=== PATIENT | female | born 1985 | race Caucasian/White ===

== ENCOUNTER 2016-07-25 18:35 | Inpatient (IN) | payer OTHER ==
--- NOTE | ~2016-07-25 | CO ---
Unit #: [id number] #: [id number] Patient: OCTAVIA ESPINAL [id number] [place] [address] [id number] I MR#: [id number] NAME: OCTAVIA ESPINAL. ROOM: P131 Age: 31 Sex: F Admission Date: 07/25/2016 : 1985 Attending Physician: Liliam Bennett M.D. Primary Care Physician: Primary Care Physician No Consultation Date: 07/27/2016 CONSULTATION REPORT ORDERING PROVIDER Dr. Bennett. REASON FOR CONSULTATION Per patient, herpes in throat and eye. SUBJECTIVE The patient reports that her right eye has been sore and she has an ingrown eyelash that is causing irritation. She also reports that she has pain in her mouth and throat and feels like her throat is closing in. OBJECTIVE The patient has some white patches on her tongue, that could be easily scraped off. Her right eye is not swollen. There is no redness. I could not identify any issues with her eyelashes. ASSESSMENT 1. Right eye irritation. 2. Thrush. PLAN Plan is to start the patient on Nystatin swish and swallow and some eye lubricant. Dictated by... Kristan Acharya A.P.R.N. for Prisca Yanez/micah TD: 07/28/2016 18:33 JOB #: [id number] CONSULTATION REPORT X KRISTAN ACHARYA APRN CONSULTATION REPORT
--- NOTE | ~2016-07-25 | HP ---
Unit #: [id number] #: [id number] Patient: EDUARDA ESPINAL [id number] [place] [address] [id number] I MR#: [id number] NAME: EDUARDA ESPINAL. ROOM: P131 Age: 30 Sex: F Admission Date: 07/25/2016 : 1985 Attending Physician: Liliam Bennett M.D. Admitting Physician: Liliam Bennett M.D. Primary Care Physician: Primary Care Physician No HISTORY AND PHYSICAL HISTORY OF PRESENT ILLNESS Eduarda is a 30-year-old female admitted on 07/25/[address] [place] [address] for suicidal ideation and confusion. She is extremely somatic and it is difficult to get surgical history from her due to this. PAST MEDICAL HISTORY 1. Possible herpes. 2. Possible endometriosis. 3. Hypertension. 4. GERD. PAST SURGICAL HISTORY Bilateral tubal ligation. ALLERGIES No known drug allergies. SOCIAL HISTORY Smokes 1 pack of cigarettes daily. No alcohol or illegal drug use. She is currently single and homeless. FAMILY HISTORY Noncontributory. REVIEW OF SYSTEMS CONSTITUTIONAL: No fever or chills. HEENT: Denies any sore throat, ear pain or runny nose. CARDIOVASCULAR: Denies chest pain, irregular heart rhythm or palpitations. CHEST: Denies shortness of breath or cough. No hemoptysis. GASTROINTESTINAL: Denies nausea, vomiting, diarrhea or chronic constipation. ENDOCRINE: Denies history of increased thirst or urination. No recent significant weight loss or gain. GENITOURINARY: Denies dysuria, frequency, or hematuria. SKIN: Denies any rashes. HEMATOLOGIC: Denies history of increased bleeding or bruising. MUSCULOSKELETAL: Denies any hot, swollen joints. No generalized muscle pain. NEUROLOGIC: Denies problems with vision or speech. No frequent, severe headaches. No numbness, tingling or weakness in any extremities. Denies loss of bladder or bowel control. CURRENT MEDICATIONS Unit #: [id number] #: [id number] Patient: EDUARDA ESPINAL 1. Norvasc. 2. Aspirin. 3. Coreg. 4. Benadryl. 5. Depakote. 6. Lexapro. 7. Neurontin. 8. Protonix. 9. Klor-Con. 10. Seroquel. PHYSICAL EXAMINATION GENERAL: Alert, oriented, in no acute distress. VITAL SIGNS: Blood pressure 143/76, heart rate 82, respirations 18, temperature 97.8. HEIGHT: 5 feet 2. WEIGHT: 116 pounds. SKIN: Warm and dry without rash or lesion. HEENT: Normocephalic. TMs not viewed. Oral and nasal passages clear. Conjunctivae clear. PERRLA. EOMs intact. NECK: Supple without lymphadenopathy or thyromegaly. HEART: Regular rate and rhythm without murmur. LUNGS: Clear. ABDOMEN: Soft, nontender, without masses or hepatosplenomegaly. : Not done. EXTREMITIES: No evidence of cyanosis, clubbing or edema. Moves all without focal deficit. NEUROLOGICAL: Grossly within normal limits. Cranial Nerves: II: Visual perez are intact. III, IV AND : Extraocular movements are intact. Pupils are equal, round and reactive to light. V: Facial sensation is grossly normal. VII: Facial movements and expression are normal. VIII: Auditory acuity grossly intact. IX, X: Uvula is midline. Phonation is normal. XI: Patient shrugs shoulders and turns head normally. XII: Tongue protrudes in the midline. Sensory and Motor Function: Sensory and motor sensation is grossly normal. Motor: moves all extremities well. Coordination: Gait is normal. Deep Tendon Reflexes: Intact. IMPRESSION 1. Psychiatric admission. 2. Possible genital herpes. 3. Endometriosis. 4. Hypertension. 5. Gastroesophageal reflux disease. RECOMMENDATIONS PSYCHIATRIC: Per psychiatrist. MEDICAL: No contraindications to participate in facility's activities. MEDICAL PROGNOSIS Good. MEDICAL CONDITION Stable. Unit #: [id number] #: [id number] Patient: EDUARDA ESPINAL Dictated by... Gus Brooks/sher TD: 07/26/2016 16:51 JOB #: [id number] HISTORY AND PHYSICAL X JUDE CROCKETT APRN X HISTORY AND PHYSICAL
--- NOTE | ~2016-07-25 | PN ---
Unit #: [id number] #: [id number] Patient: OCTAVIA ESPINAL [id number] [facility] [address] [place] [address] [id number] I MR#: [id number] NAME: OCTAVIA ESPINAL. ROOM: P131 Age: 31 Sex: F Admission Date: 07/25/2016 : 1985 Attending Physician: Liliam Bennett M.D. Admitting Physician: Liliam Bennett M.D. Primary Care Physician: Primary Care Physician Jovanna POWELL NOTES DATE 07/27/2016 DISCUSSION Ms. Lerner is a 31-year-old white female who was seen today and chart was reviewed and case was discussed with the staff. She has been anxious, withdrawn and seclusive to herself and has been showing some disorganized thoughts and behavior with agitation and irritability and hostility and at times violent outburst. Meanwhile, she has been taking medications and tolerating them fairly well with no reported side effects. MENTAL STATUS EXAMINATION Young white female who was casually dressed with fair personal hygiene, appears to be in no acute distress or discomfort. She was awake and alert with impaired attention and concentration. Her mood was anxious with congruent affect. Her speech was slow and restricted in content. Her thought process was disorganized with some looseness associations, thought blocking and paranoid ideations. Her insight and judgement remains significantly impaired. TREATMENT PLAN 1. We will continue her on her current medications and treatment protocol. We will monitor her response to the medications and make further adjustments as needed. 2. We will continue to follow up. Dictated by... Prisca Law/arianne TD: 07/29/2016 03:37 JOB #: [id number] Unit #: [id number] #: [id number] Patient: OCTAVIA ESPINAL JOANNA PROGRESS NOTES X iLliam Bennett MD PROGRESS NOTE
--- NOTE | ~2016-07-25 | PN ---
Unit #: [id number] #: [id number] Patient: OCTAVIA RUIZ [id number] [facility] [address] [place] [address] [id number] I MR#: [id number] NAME: OCTAVIA RUIZ. ROOM: P131 Age: 31 Sex: F Admission Date: 07/25/2016 : 1985 Attending Physician: Liliam Bennett M.D. Admitting Physician: Liliam Bennett M.D. Primary Care Physician: Primary Care Physician Jovanna MARSHALL PROGRESS NOTES DATE July 30, 2016 DISCUSSION Ms. Riuz is a 31-year-old white female, who was seen today and chart was reviewed and the case was discussed with the staff. The patient has been anxious, withdrawn, and rather seclusive to herself. Meanwhile, she has been cooperative with the treatment recommendations and she has been taking the medications and tolerating them fairly well with no reported side effects. MENTAL STATUS EXAMINATION Young white female, who was casually dressed with fair personal hygiene and appears to be in no acute distress or discomfort. She was awake and alert on interaction with intact orientation. Her mood was anxious and depressed with a congruent affect. The patient denies any suicidal or homicidal ideations. Her insight and judgment remain slightly impaired. TREATMENT PLAN 1. We will continue her on her current medications and treatment protocol, and will monitor her response to the medications, and make further adjustments as needed. 2. We will continue to followup. Dictated by... Prisca Law/severino TD: 07/31/2016 09:39 JOB #: [id number] Unit #: [id number] #: [id number] Patient: OCTAVIA RUIZ [facility] PROGRESS NOTES X Liliam Bennett MD PROGRESS NOTE
--- NOTE | ~2016-07-25 | PN ---
Unit #: [id number] #: [id number] Patient: OCTAVIA ESPINAL [id number] [facility] [address] [place] [address] [id number] I MR#: [id number] NAME: OCTAVIA ESPINAL. ROOM: P131 Age: 31 Sex: F Admission Date: 07/25/2016 : 1985 Attending Physician: Liliam Bennett M.D. Admitting Physician: Liliam Bennett M.D. Primary Care Physician: Primary Care Physician Jovanna MARSHALL PROGRESS NOTES DATE OF SERVICE: 07/28/2016 SUBJECTIVE Ms. Ralph is a 31-year-old white female basically with mood disorder and psychosis, who was seen today and chart was reviewed and the case was discussed with the staff, who reports the patient remained agitated She has been taking the medications and tolerating them fairly well with no reported side effects. MENTAL STATUS EXAMINATION Young white female, who was casually dressed with fair personal hygiene, appears to be in no acute distress or discomfort. She was awake and alert on interaction with intact orientation. Her mood was anxious with a congruent . She denies any suicidal or homicidal ideations. Her insight and judgment remain slightly impaired. TREATMENT PLAN 1. We will continue her on her current medications and treatment protocol. We will monitor her response to medications and make further adjustments as needed. 2. We will continue to follow up. Dictated by... Prisca Law/micah TD: 07/29/2016 04:53 JOB #: [id number] [facility] PROGRESS NOTES X Liliam Bennett MD PROGRESS NOTE
--- NOTE | ~2016-07-25 | DS ---
Unit #: [id number] #: [id number] Patient: OCTAVIA ESPINAL [id number] [place] [address] [id number] I MR#: [id number] NAME: OCTAVIA ESPINAL ROOM: P131 Age: 31 Sex: F Admission Date: 07/25/2016 : 1985 Discharge Date: 07/31/2016 Attending Physician: Liliam Bennett M.D. Primary Care Physician: Primary Care Physician No DISCHARGE SUMMARY IDENTIFYING DATA Ms. Espinal is a 30-year-old single white female, who is a resident of [place], [place], and is known to us from previous encounter, [facility] and was oriented to the hospital environment. Routine p.r.n. medications were initiated and upon initial presentation to the unit, she was seen to be agitated, irritable, aggressive, and acutely psychotic, and noncompliant with medications and has been decompensating and as such, was started back on her medications including her Depakote, Lexapro, and Seroquel and was closely monitored. She was taken medications regularly and was tolerating them fairly well and was able to show a decent and therapeutic response with improvement in depression and psychosis and was willing to continue treatment on an outpatient basis and as such, it was decided that she will be discharged home and will continue treatment on an outpatient basis. DISCHARGE MEDICATIONS Depakote 500 mg b.i.d. for mood disorder, Lexapro 10 mg a day for depression, and Seroquel 300 mg at bedtime for psychosis. DISCHARGE CONDITION Stable. PROGNOSIS Fair. Dictated by... Prisca Law/imcah TD: 07/31/2016 06:56 JOB #: [id number] DISCHARGE SUMMARY X Liliam Bennett MD X DISCHARGE SUMMARY
--- NOTE | ~2016-07-25 | PN ---
Unit #: [id number] #: [id number] Patient: OCTAVIA ESPINAL [id number] [facility] [address] [place] [address] [id number] I MR#: [id number] NAME: OCTAVIA ESPINAL. ROOM: P131 Age: 31 Sex: F Admission Date: 07/25/2016 : 1985 Attending Physician: Liliam Bennett M.D. Admitting Physician: Liliam Bennett M.D. Primary Care Physician: Primary Care Physician Jovanna MARSHALL PROGRESS NOTES DATE OF SERVICE 07/29/2016 DISCUSSION Ms. Espinal is a 31-year-old white female who was seen today. Chart was reviewed and case was discussed with the staff. She has been anxious, withdrawn, and rather seclusive to herself. Meanwhile, she has been compliant with the treatment recommendations and has been taking the medications and tolerating them fairly well with no reported side effects. MENTAL STATUS EXAMINATION Young white female who is casually dressed with fair personal hygiene, appears to be in no acute distress or discomfort. She was awake and alert on interaction with intact orientation. Her mood is anxious with a congruent affect. Her speech is slow and goal-directed. She denies any suicidal or homicidal ideations. Her insight and judgment remain slightly impaired. TREATMENT PLAN 1. We will continue her on her current medications and treatment protocol. We will monitor her response to the medications and make further adjustments as needed. 2. We will continue to follow up. Dictated by... Liliam Bennett M.D. IAA/leobardo TD: 07/30/2016 11:45 JOB #: [id number] [facility] PROGRESS NOTES X Liliam Bennett MD PROGRESS NOTE
--- NOTE | ~2016-07-25 | PA ---
Unit #: [id number] #: [id number] Patient: OCTAVIA RUIZ [id number] [place] [address] [id number] I MR#: [id number] NAME: OCTAVIA RUIZ. ROOM: P131 Age: 31 Sex: F Admission Date: 07/25/2016 : 1985 Date of Assessment: Attending Physician: Liliam Bennett M.D. Admitting Physician: Liliam Bennett M.D. PSYCHIATRIC ASSESSMENT DATE OF SERVICE 07/26/2016. IDENTIFYING DATA Ms. Ruiz is a 30-year-old single white female, who is a resident of [place], [place], and is known to us from previous encounter and was transferred to us. CHIEF COMPLAINT "My psyche is not good. I keep wanting to hurt myself. I need to clear my mind." HISTORY OF PRESENT ILLNESS Ms. Lafleru is a 30-year-old white female with history of mood disorder and psychosis, who was brought to the hospital. Upon presentation, she was seen to be disorganized and she stated that "I keep wanting to hurt myself. I need to clear my mind. My eye is infected. I'm confused when I'm off my medication. I will take my medication. I will go to treatment and I will do whatever to get better, so I don't feel hopeless anymore and judicious thought of my kids have me going. I'm suicidal. My mood is out of control. I have headaches." The patient was seen to be disorganized with looseness of associations, flight of ideas, and was rambling and was agitated and irritable and difficult to carry on meaningful conversation. She was reporting active suicidal ideation and as such, was seen to be a safety concern and recommendation for inpatient level of care was made. SUBSTANCE ABUSE HISTORY The patient reports history of alcohol and benzodiazepine abuse, though she reports that she has not done anything in the last week or two. PAST PSYCHIATRIC HISTORY The patient has had a history of multiple inpatient psychiatric hospitalizations including being at [facility], and review of the medical records indicate that currently she is not seeing a psychiatrist, and review of the medical records indicate that she has been diagnosed and treated for bipolar disorder and is supposed to be on a combination of psychotropic medications including Depakote, Lexapro, and Neurontin, but has been noncompliant with medications. PAST MEDICAL HISTORY Hypertension and endometriosis. ALLERGIES Unit #: [id number] #: [id number] Patient: OCTAVIA RUIZ No known medication allergies. PERSONAL AND SOCIAL HISTORY A 30-year-old white female, who reports that she is single, unemployed, and essentially homeless and has poor social support system. MENTAL STATUS EXAMINATION Young white female, who was casually dressed with fair personal hygiene, appears to be in no acute distress or discomfort. She was awake and alert on interaction with intact orientation. Her mood was anxious with a congruent affect. Her speech was slow and goal directed. Her thought processes were disorganized with some looseness of associations and flight of ideas and paranoid ideations and delusional behavior. Her insight and judgment remain significantly impaired. DIAGNOSTIC IMPRESSION Psychiatric: Schizoaffective disorder, bipolar type, most recent episode depressed, recurrent, moderate, with psychosis. Medical: Hypertension and endometriosis. Stressors: Moderate psychosocial stressors. TREATMENT PLAN 1. The patient has presented with a history of mood disorder and has been decompensating with acute psychosis and depression and suicidal thoughts and will need inpatient hospitalization for safety and stabilization. We will start her back on her home medications and we will adjust the medications and monitor response. 2. Supportive therapy was provided to the patient. ESTIMATED LENGTH OF STAY 5 to 7 days. ABILITY TO HELP SELF Limited. WILLINGNESS TO HELP SELF The patient appears to be willing to help self. STRENGTHS 1. Communicative. 2. Cooperative. PROBLEMS 1. Chronic dysphoric symptoms. 2. Poor social support system. DISCHARGE CRITERIA This will be contingent upon the patient's ability to show resolution of depression and anxiety and psychosis and ability to stay safe to herself, particularly after discharge from the hospital. Dictated by... Prisca Law/micah TD: 07/26/2016 13:26 Unit #: [id number] #: [id number] Patient: OCTAVIA RUIZ JOB #: [id number] PSYCHIATRIC ASSESSMENT X Liliam Bennett MD X PSYCHIATRIC ASSESSMENT
[~2016-07-25 18:35] MED LIST: DEPAKOTE PO; FLEXERIL10 MG PO; NEURONTIN PO; ORUDIS75 M1 PO; SEROQUEL PO
== END 2016-07-31 10:20 | DRG 885 ==
LOC: P1S 18:35
DX: F25.0 Schizoaffective disorder, bipolar type (principal); B37.0 Candidal stomatitis; I10 Essential (primary) hypertension; F17.210 Nicotine dependence, cigarettes, uncomplicated; H57.9 Unspecified disorder of eye and adnexa

== ENCOUNTER 2016-08-12 21:01 | Inpatient (IN) | payer OTHER ==
--- NOTE | ~2016-08-12 | HP ---
Unit #: [id number] #: [id number] Patient: EDUARDA ESPINAL [id number] [place] [address] [id number] I MR#: [id number] NAME: EDUARDA ESPINAL. ROOM: P113 Age: 31 Sex: F Admission Date: 08/12/2016 : 1985 Attending Physician: Liliam Bennett M.D. Admitting Physician: Liliam Bennett M.D. Primary Care Physician: Generic Doctor Not In System HISTORY AND PHYSICAL Eduarda is a 31 year old admitted to [address] [place] [address] with depression and increased anxiety. She has had other admissions to this facility. The patient was seen and H and P dated 07/26/16 was reviewed. This is current. No changes. Please see H and P dated 07/26/16. Dictated by... Jennifer Rendon P.A.-C. for Prisca Yanez/hser TD: 08/13/2016 19:38 JOB #: [id number] HISTORY AND PHYSICAL X Jennifer Rendon HISTORY AND PHYSICAL
--- NOTE | ~2016-08-12 | PN ---
Unit #: [id number] #: [id number] Patient: OCTAVIA ESPINAL [id number] [facility] [address] [place] [address] [id number] I MR#: [id number] NAME: OCTAVIA ESPINAL. ROOM: P113 Age: 31 Sex: F Admission Date: 08/12/2016 : 1985 Attending Physician: Liliam Bennett M.D. Admitting Physician: Liliam Bennett M.D. Primary Care Physician: Generic Doctor Not In System [facility] PROGRESS NOTES DATE 08/16/2016 DISCUSSION Ms. Espinal is a 31-year-old white female who was seen today and chart was reviewed and case was discussed with the staff. She has been anxious, withdrawn, depressed and rather seclusive to herself. Meanwhile, she has been cooperative with treatment recommendations as she has been taking the medications and tolerating them fairly well with no reported side effects. MENTAL STATUS EXAMINATION Young white female who was casually dressed with fair personal hygiene, appears to be in no acute distress or discomfort. She was awake and alert on interaction with intact orientation. Her mood was anxious with congruent affect. She denies any suicidal or homicidal ideations. Her insight and judgement remains slightly impaired. TREATMENT PLAN 1. We will continue her on her current medications and treatment protocol. We will monitor her response to the medication and make further adjustments as needed. 2. We will continue to follow up. Dictated by... Prisca Law/arianne TD: 08/18/2016 01:25 JOB #: [id number] Unit #: [id number] #: [id number] Patient: OCTAVIA ESPINAL [facility] PROGRESS NOTES X Liliam Bennett MD X PROGRESS NOTE
--- NOTE | ~2016-08-12 | DS ---
Unit #: [id number] #: [id number] [facility]: [facility] [id number] [facility] [address] [place] [address] [id number] I MR#: [id number] NAME: OCTAVIA RUIZ. ROOM: P113 Age: 31 Sex: F Admission Date: 08/12/2016 : 1985 Discharge Date: 08/18/2016 Attending Physician: Liliam Bennett M.D. Primary Care Physician: Generic Doctor Not In System DISCHARGE SUMMARY IDENTIFYING DATA Ms. Ruiz is a 31-year-old single white female, who is a resident of [place], [place], and was just recently discharged from our care and was brought back to the hospital on a self-referred basis. DISCHARGE DIAGNOSES Psychiatric: Schizoaffective disorder, bipolar type, most recent episode depressed, recurrent, moderate, with psychosis. Medical: Hypertension, endometriosis, gastroesophageal reflux disease. Stressors: Moderate psychosocial stressors. HISTORY OF PRESENT ILLNESS Please see initial psychiatric evaluation for details. PAST PSYCHIATRIC HISTORY Please see initial psychiatric evaluation for details. PAST MEDICAL HISTORY Please see initial psychiatric evaluation for details. HOSPITAL COURSE The patient was admitted to the adult psychiatric unit at [facility] and was oriented to the hospital environment. Routine p.r.n. medications were initiated, and she was started back on her home medications and medications were adjusted and she was closely monitored. She was initially seen to be exhibiting quite a bit of psychosis and was very seclusive to herself; however, she was able to show a decent and therapeutic response to the medications with improvement in depression and anxiety and was willing to continue treatment on an outpatient basis and as such, it was decided that she will be discharged home and will continue treatment on an outpatient basis. DISCHARGE MEDICATIONS Depakote ER 500 mg b.i.d. for bipolar, Lexapro 10 mg a day for depression, Seroquel 300 mg at bedtime for psychosis, Norvasc 5 mg a day for hypertension, baclofen 5 mg t.i.d. for pain, Coreg 3.125 mg b.i.d. for hypertension, Protonix 40 mg a day for acid reflux, Neurontin 400 mg t.i.d. for neuropathy. DISCHARGE CONDITION Stable. PROGNOSIS Unit #: [id number] #: [id number] Patient: BETTIEBenjamínOCTAVIA. Dictated by... Prisca Law/micah TD: 08/18/2016 07:16 JOB #: [id number] DISCHARGE SUMMARY X Liliam Bennett MD DISCHARGE SUMMARY
--- NOTE | ~2016-08-12 | CO ---
Unit #: [id number] #: [id number] Patient: OCTAVIA ESPINAL [id number] [place] [address] [id number] I MR#: [id number] NAME: OCTAVIA ESPINAL. ROOM: P113 Age: 31 Sex: F Admission Date: 08/12/2016 : 1985 Attending Physician: Liliam Bennett M.D. Primary Care Physician: Generic Doctor Not In System Consultation Date: 08/15/2016 CONSULTATION REPORT SUBJECTIVE The patient is a 31 year old who has complained of back pain. She denies any injury. She further denies urgency, frequency, or dysuria. She does have a history of polyillicit substance abuse to include opioids and benzodiazepines. We have been asked to see her for her back pain. OBJECTIVE GENERAL: Alert, well nourished. No apparent distress. VITAL SIGNS: Blood pressure 120/70, heart rate 80, respirations 16, and temperature 98.6. Back: Full range of motion. She complains of excruciating pain with very gentle touch. SKIN: Warm and dry without rash. NEUROLOGICAL: Grossly intact. ASSESSMENT Back pain, most likely musculoskeletal. PLAN Tylenol p.r.n. Dictated by... Jennifer Rendon PHoracioA.-C. for Prisca Yanez/leobardo TD: 08/20/2016 14:50 JOB #: [id number] CONSULTATION REPORT Page 1 of 1 X Jennifer Rendon CONSULTATION REPORT
--- NOTE | ~2016-08-12 | PN ---
Unit #: [id number] #: [id number] Patient: OCTAVIA ESPINAL [id number] [facility] [address] [place] [address] [id number] MR#: [id number] NAME: OCTAVIA ESPINAL. ROOM: P113 Age: 31 Sex: F Admission Date: 08/12/2016 : 1985 Attending Physician: Liliam Bennett M.D. Admitting Physician: Liliam Bennett M.D. Primary Care Physician: Generic Doctor Not In System [facility] PROGRESS NOTES DATE OF SERVICE: 08/14/2016 SUBJECTIVE Ms. Espinal is a 31-year-old white female who was seen today and chart was reviewed, and case was discussed with the staff. She has been anxious, withdrawn, and rather seclusive to herself. Meanwhile, she has been cooperative with treatment recommendation and has been taking the medications and tolerating them fairly well with no reported side effects. MENTAL STATUS EXAMINATION Young white female who was casually dressed with fair personal hygiene, appears to be in no acute distress or discomfort. She was awake and alert on interaction with intact orientation. Her mood was anxious with a congruent. She denies any suicidal or homicidal ideations, and also denies any auditory or visual hallucinations. Her insight and judgment remain slightly impaired. TREATMENT PLAN 1. We will continue her on her current medications and treatment protocol. We will monitor her response to the medications and make further adjustments as needed. 2. We will continue to follow up. Dictated by... Prisca Law/micah TD: 08/14/2016 23:26 JOB #: [id number] [facility] PROGRESS NOTES X Liliam Bennett MD PROGRESS NOTE
--- NOTE | ~2016-08-12 | PN ---
Unit #: [id number] #: [id number] Patient: OCTAVIA ESPINAL [id number] [facility] [address] [place] [address] [id number] MR#: [id number] NAME: OCTAVIA ESPINAL. ROOM: P113 Age: 31 Sex: F Admission Date: 08/12/2016 : 1985 Attending Physician: Liliam Bennett M.D. Admitting Physician: Liliam Bennett M.D. Primary Care Physician: Generic Doctor Not In System [facility] PROGRESS NOTES DATE OF SERVICE: 08/17/2016 SUBJECTIVE Ms. Espinal is a 31-year-old white female, who was seen today and chart was reviewed, and case was discussed with the staff. She remains anxious, withdrawn, and rather seclusive to herself behavior. She has not shown any agitation, aggression . She has been taking medications and tolerating them fairly well. MENTAL STATUS EXAMINATION Young white female, who was casually dressed with fair personal hygiene, appears to be in no acute distress or discomfort. She was awake and alert on interaction with intact orientation. Her mood was anxious with a congruent affect. She denies any suicidal or homicidal ideations, and also denies any auditory or visual hallucinations. Her insight and judgment remain slightly impaired. TREATMENT PLAN 1. We will continue on her current medications and treatment protocol. We will monitor her response to medications and make further adjustments as needed . 2. We will continue to follow up. Dictated by... Prisca Law/micah TD: 08/18/2016 19:11 JOB #: [id number] [facility] PROGRESS NOTES Page 1 of 1 X Liliam Bennett MD PROGRESS NOTE
--- NOTE | ~2016-08-12 | PN ---
Unit #: [id number] #: [id number] Patient: OCTAVIA ESPINAL [id number] [facility] [address] [place] [address] [id number] I MR#: [id number] NAME: OCTAVIA ESPINAL. ROOM: P113 Age: 31 Sex: F Admission Date: 08/12/2016 : 1985 Attending Physician: Liliam Bennett M.D. Admitting Physician: Liliam Bennett M.D. Primary Care Physician: Generic Doctor Not In System [facility] PROGRESS NOTES DATE OF SERVICE: 08/15/2016 SUBJECTIVE Ms. Espinal is a 31-year-old white female, who was seen today and chart was reviewed, and case was discussed with the staff. She has been anxious, withdrawn, and rather seclusive to herself. Meanwhile, she has been cooperative with treatment recommendation and has been taking the medications and tolerating them fairly well. MENTAL STATUS EXAMINATION Young white female, who was casually dressed with fair personal hygiene, appears to be in no acute distress or discomfort. She was awake and alert on interaction with intact orientation. Her mood was anxious with a congruent affect. Her speech was slow and goal directed. She denies any suicidal or homicidal ideations. Her insight and judgment remain slightly impaired. TREATMENT PLAN 1. We will continue her on her current medications and treatment protocol. We will monitor her response to the medications and make further adjustments as needed. 2. We will continue to follow up. Dictated by... Prisca Law/micah TD: 08/16/2016 00:43 JOB #: [id number] [facility] PROGRESS NOTES X Liliam Bennett MD PROGRESS NOTE
--- NOTE | ~2016-08-12 | PA ---
Unit #: [id number] #: [id number] Patient: OCTAVIA ESPINAL [id number] [facility] [address] [place] [address] [id number] MR#: [id number] NAME: OCTAVIA ESPINAL. ROOM: P113 Age: 31 Sex: F Admission Date: 08/12/2016 : 1985 Date of Assessment: 08/13/2016 Attending Physician: Liliam Bennett M.D. Admitting Physician: Liliam Bennett M.D. Primary Care Physician: Generic Doctor Not In System PSYCHIATRIC ASSESSMENT DATE OF SERVICE 08/13/2016. IDENTIFYING DATA Ms. Espinal is a 31-year-old single white female who is a resident of [place], [place] and was just recently discharged from my care couple of weeks ago and was brought back to the hospital. CHIEF COMPLAINT "I went down to [facility] and tried to get my life together." HISTORY OF PRESENT ILLNESS Ms. Espinal is a 31-year-old white female with history of mood disorder and psychosis, who was recently discharged from my care and was brought back to the hospital stating that she went to [facility] and then she went to [facility] and social security office and that she has been staying in shelters and "everybody gave me a hard time. They are confused about my sexuality, my spirituality. I'm from my family and my kids. I'm thinking about hurting myself again, not just for a week or 2." She was seen to be acutely psychotic with bizarre behavior, and agitated, and irritable, and was out of touch with reality and was voicing suicidal thoughts and was seen to be danger to self and as such, recommendation for inpatient level of care was made. SUBSTANCE ABUSE HISTORY The patient denies any current alcohol or drug abuse. PAST PSYCHIATRIC HISTORY The patient has had history of multiple inpatient psychiatric hospitalizations across different facilities including [facility], [facility], [facility] and has had outpatient treatment through [facility] and now [facility] and review of the medical records indicate that she has been diagnosed and treated for schizoaffective disorder, bipolar type, and is supposed to be on combination of psychotropic medications including Seroquel, Depakote, and Lexapro and has been noncompliant with medication and as such, has been decompensating. PAST MEDICAL HISTORY The patient's medical history is significant for hypertension, endometriosis, gastroesophageal reflux disease. ALLERGIES Unit #: [id number] #: [id number] Patient: OCTAVIA ESPINAL No known medication allergies. PERSONAL AND SOCIAL HISTORY A 31-year-old white female who reports that she is single, unemployed, and essentially homeless and has poor social support system. MENTAL STATUS EXAMINATION Young white female who was casually dressed with fair personal hygiene, appears to be in no acute distress or discomfort. She was awake and alert on interaction with intact orientation to time, place, and person. Her mood was anxious and depressed with a congruent affect. Her speech was slow and goal directed. She reports having suicidal ideations, but denies any homicidal ideations. Her thought processes were disorganized with some looseness of associations and flight of ideas and paranoid ideations, and delusional behavior. Her insight and judgment remain significantly impaired. DIAGNOSTIC IMPRESSION Psychiatric: Schizoaffective disorder, bipolar type, most recent episode depressed, recurrent, moderate, with psychosis. Medical: Hypertension, endometriosis, gastroesophageal reflux disease. Stressors: Moderate psychosocial stressors. TREATMENT PLAN 1. The patient has presented with history of mood disorder and psychosis, and has been decompensating and will need inpatient hospitalization for safety and stabilization. We will start her back on her home medications and we will adjust the medications and monitor response. 2. Supportive therapy was provided to the patient. 3. Safe, structured, and nourishing environment will be provided. ESTIMATED LENGTH OF STAY 5 to 7 days. ABILITY TO HELP SELF Limited. WILLINGNESS TO HELP SELF The patient appears to be willing to help self. STRENGTHS 1. Communicative. 2. Cooperative. PROBLEMS 1. Chronic dysphoric symptoms. 2. Chronic chemical dependency. 3. Poor social support system. DISCHARGE CRITERIA This will be contingent upon the patient's ability to show resolution of her depression and anxiety and psychosis and her ability to stay safe to herself, particularly after discharge from the hospital. Dictated by..Horacio Bennett M.D. Unit #: [id number] #: [id number] Patient: OCTAVIA ESPINAL IAA/modl TD: 08/14/2016 00:31 JOB #: [id number] PSYCHIATRIC ASSESSMENT X Liliam Bennett MD PSYCHIATRIC ASSESSMENT
[2016-08-13 09:43] LABS: ALBUMIN SERUM 3.3 g/dL (3.5-5.0); ALKALINE PHOSPHATASE 57 U/L (32-92); ALT (SGPT) 9 U/L (10-40); AST (SGOT) 13 U/L (10-42); BASOPHIL% 0.4 % (0-2.5); BILIRUBIN,TOTAL 0.4 mg/dL (0.2-2.0); BLOOD UREA NITROGEN 9 mg/dL (9-23); CALCIUM SERUM 8.8 mg/dL (8.4-10.2); CARBON DIOXIDE 29 mmol/L (22-31); CHLORIDE 107 mmol/L (100-111); CREATININE SERUM 0.6 mg/dL (0.6-1.4); EOSINOPHIL% 0.6 % (0.0-7.0); GLOM FILT RATE Estimated ABOVE60 mL/min (>60); GLUCOSE FASTING 83 mg/dL (70-110); HEMATOCRIT 36.9 % (35.0-45.0); HEMOGLOBIN 12.1 gm/dL (12.0-16.0); LYMPHOCYTE# 3.3 X10e3 (1.0-3.5); LYMPHOCYTE% 55.7 % (17.0-45.0); MEAN CORPUSCULAR HEMOGLOBIN 31.4 PG (28-34); MEAN CORPUSCULAR HGB CONC 32.7 g/dL (30-36); MEAN PLATELET VOLUME 8.2 FL (6.5-11.5); MONOCYTE# 0.6 X10e3 (0-1.0); MONOCYTE% 10.5 % (3.0-12.0); NEUTROPHIL# 1.9 X10e3 (1.5-7.1); NEUTROPHIL% 32.8 % (40-75); PLATELET COUNT 288 X10e3 (140-420); POTASSIUM 4.7 mmol/L (3.5-5.1); PROTEIN TOTAL SERUM 5.7 g/dL (6.0-8.3); RED BLOOD COUNT 3.85 X10e (3.90-5.30); RED CELL DISTRIBUTION WIDTH 12.3 % (11.0-15.5); SODIUM 140 mmol/L (135-145); WHITE BLOOD COUNT 5.9 X10e3 (4.0-10.5)
[2016-08-13 09:46] LABS: DIFF IND YES
[2016-08-13 10:45] LABS: PLATELET ESTIMATE NORMAL (NORMAL); RBC NORMAL YES
== END 2016-08-18 10:35 | disposition home or self-care (01) | DRG 885 ==
LOC: P1S 21:01
PROVIDERS: Psychiatry & Neurology Psychiatry
DX: F31.5 Bipolar disorder, current episode depressed, severe, with psychotic features (principal); I10 Essential (primary) hypertension; K21.9 Gastro-esophageal reflux disease without esophagitis; N80.9 Endometriosis, unspecified; M54.9 Dorsalgia, unspecified
CPT/HCPCS: 80053; 85025

== ENCOUNTER 2016-08-30 12:15 | Inpatient (IN) | payer OTHER ==
--- NOTE | ~2016-08-30 | A ---
[facility] Nutrition Therapy DATE: 09/01/16 Patient: OCTAVIA ESPINAL Physician: ELIANA Address: NO PERMANENT ADDRESS Room/Bed: [facility], Zip: [place] [address] Admit Date: 08/30/16 Date of : [birth year] Height: 5 6 Weight: [phone] NUTRITIONAL ASSESSMENT: REASON: 2 NUTRITIONAL RISK POINTS- UNINTENTIONAL WEIGHT LOSS, CHEWING/SWALLOWING DIFFICULTY PATIENT ADMITTED FOR SI PMH: HTN, GERD, CHRONIC MENTAL ILLNESS, SUBSTANCE ABUSE Anthropometrics: HT: 5'2", WT: 120#, BMI: 21.9 Labs: NO LABS AVAILABLE Meds: SEROQUEL, VISTARIL, DESYREL, NEURONTIN Assessment: CHART REVIEWED, EVENTS NOTED. PATIENT IS A 31 Y/O FEMALE ADMITTED FOR SI. PATIENT IS CURRENTLY UNEMPLOYED, HOMELESS, SMOKES 1/2 PPD, AND DENIES CURRENT SUBSTANCE ABUSE; HOWEVER PATIENT HAS A HX OF OPIOID ABUSE. PATIENT STATES A FAIR APPETITE WITH NO RECENT WEIGHT CHANGES. NURSING REPORTS FAIR PO INTAKES. [facility]-6# WEIGHT GAIN OVER LAST 6 MONTHS. PATIENT HAS BEEN NON-COMPLIANT WITH MEDS SINCE LAST ADMIT. PATIENT HAS A HX OF INPATIENT PSYCH TREATMENT AT THIS FACILITY. RD ASSESSED PATIENT 04/09/16- NOTE REVIEWED. PATIENT IS CURRENTLY ON A REGULAR DIET WITH LARGE PORTION ENTREES, AND RECEIVES ENSURE PLUS TID. THERE ARE NO SKIN OR GI ISSUES NOTED ATT. PATIENT CURRENTLY HAS NO C/O CHEWING OR SWALLOWING DIFFICULTIES. Dx: NO NUTRITION DX Intervention: 1. REGULAR DIET, 2. LARGE PORTIONS, 3. SUPPLEMENTS, 4. MEDS PER MD, 5. PSYCH Monitoring, Evaluation and Goals: 1. ADEQUATE PO INTAKES >50% OF MEALS 2. PREVENT, CORRECT MICRO/MACRO NUTRIENT DEFICIENCIES MONITOR: WEIGHTS, LABS, PO/FLUID INTAKES Recommendations: 1. CONTINUE REGULAR DIET TOLERATED. RECOMMEND D/Cing EITHER LARGE PORTION ENTREES OR ENSURE TID D/T NO NUTRITIONAL NEED FOR INCREASED CALORIC INTAKE. PATIENT'S WEIGHT IS WITHIN A HEALTHY RANGE AND SHE HAS HAD A 5-6# WEIGHT GAIN OVER LAST 6 MONTHS. 2. IF PATIENT HAS C/O CHEWING/SWALLOWING DIFFICULTIES PLEASE CONSULT CIRCULAR KNITTER HELPER FOR FURTHER EVALUATION [facility] Therapy DATE: 04/03/17 Patient: OCTAVIA ESPINAL Physician: ELIANA Address: NO PERMANENT ADDRESS Room/Bed: [address], [facility], Zip: [place] [address] Admit Date: 08/30/16 Date of : [birth year] Height: 5 6 Weight: 119 54.45255 3. ENCOURAGE ADEQUATE PO AND FLUID INTAKES PATIENT IS NOT AT NUTRITIONAL RISK ATT Respectfully, HUI REEVES RD, LD [facility] cc: client file
--- NOTE | ~2016-08-30 | PN ---
Unit #: [id number] #: [id number] Patient: OCTAVIA ESPINAL [id number] [facility] [address] [place] [address] [id number] I MR#: [id number] NAME: OCTAVIA ESPINAL. ROOM: P132 Age: 31 Sex: F Admission Date: 08/30/2016 : 1985 Attending Physician: Liliam Bennett M.D. Admitting Physician: Liliam Bennett M.D. Primary Care Physician: Tessa Doctor Not In System [facility] PROGRESS NOTES DATE 09/01/2016 DISCUSSION Ms. Espinal is a 31-year-old white female who was seen today and chart was reviewed and case was discussed with the staff. She has been anxious, withdrawn and rather seclusive to herself. Meanwhile, she has been cooperative with treatment recommendations and has been taking medications and tolerating them fairly well with no reported side effects. MENTAL STATUS EXAMINATION Young white female who was casually dressed with fair personal hygiene, appears to be in no acute distress or discomfort. She was awake and alert with impaired attention and concentration. Her mood was anxious with congruent affect. Her speech was slow and restricted in content. Her thought processes were disorganized with some looseness of associations and paranoid ideations. Her insight and judgement remains significantly impaired. \ TREATMENT PLAN 1. We will continue her on her current medications and treatment protocol. We will monitor her response to the medication and make further adjustments as needed. 2. We will continue to follow up. Dictated by... Prisca Law/arianne TD: 09/03/2016 00:24 JOB #: [id number] Unit #: [id number] #: [id number] Patient: OCTAVIA ESPINAL [facility] PROGRESS NOTES Page 1 of 1 X Liliam Bennett MD PROGRESS NOTE
--- NOTE | ~2016-08-30 | HP ---
Unit #: [id number] #: [id number] Patient: OCTAVIA ESPINAL [id number] [place] [address] [id number] I MR#: [id number] NAME: OCTAVIA ESPINAL. ROOM: P132 Age: 31 Sex: F Admission Date: 08/30/2016 : 1985 Attending Physician: Liliam Bennett M.D. Admitting Physician: Liliam Bennett M.D. Primary Care Physician: Generic Doctor Not In System HISTORY AND PHYSICAL HISTORY OF PRESENT ILLNESS The patient is a 31-year-old female with a history of bipolar disorder, depression, anxiety, who was brought here because she is having some suicidal ideations. She presented to the emergency room at [facility] saying that she was hearing voices and seeing things and she was brought here. PAST MEDICAL HISTORY None. PAST SURGICAL HISTORY None. ALLERGIES None. SOCIAL HISTORY Positive for smoking. FAMILY HISTORY Noncontributory. REVIEW OF SYSTEMS CONSTITUTIONAL: No fever or chills. HEENT: Denies any sore throat, ear pain or runny nose. CARDIOVASCULAR: Denies chest pain, irregular heart rhythm or palpitations. CHEST: Denies shortness of breath or cough. No hemoptysis. GASTROINTESTINAL: Denies nausea, vomiting, diarrhea or chronic constipation. ENDOCRINE: Denies history of increased thirst or urination. No recent significant weight loss or gain. GENITOURINARY: Denies dysuria, frequency, or hematuria. SKIN: Denies any rashes. HEMATOLOGIC: Denies history of increased bleeding or bruising. MUSCULOSKELETAL: Denies any hot, swollen joints. No generalized muscle pain. NEUROLOGIC: Denies problems with vision or speech. No frequent, severe headaches. No numbness, tingling or weakness in any extremities. Denies loss of bladder or bowel control. CURRENT MEDICATIONS 1. Depakote ER 500 mg p.o. b.i.d. 2. Lexapro 10 mg p.o. daily. 3. Seroquel 300 mg p.o. q.h.s. Unit #: [id number] #: [id number] Patient: OCTAVIA ESPINAL 4. Norvasc 5 mg p.o. daily. 5. Baclofen 5 mg p.o. t.i.d. 6. Coreg 3.125 mg p.o. b.i.d. 7. Protonix 40 mg p.o. daily. 8. Neurontin 400 mg p.o. t.i.d. PHYSICAL EXAMINATION GENERAL: Alert, oriented, in no acute distress, lying in bed. VITAL SIGNS: Temperature 98.5, heart rate 88, respirations 20, blood pressure 146/79. SKIN: Tattoo to the right subscapular area. Scar to the forehead. HEENT: Normocephalic. TMs not viewed. Oral and nasal passages clear. Conjunctivae clear. PERRLA. EOMs intact. NECK: Supple without lymphadenopathy or thyromegaly. HEART: Regular rate and rhythm without murmur. LUNGS: Clear. ABDOMEN: Soft, nontender, without masses or hepatosplenomegaly. : Not done. EXTREMITIES: No evidence of cyanosis, clubbing or edema. Moves all without focal deficit. NEUROLOGICAL: Grossly within normal limits. Cranial Nerves: II: Visual perez are intact. III, IV AND : Extraocular movements are intact. Pupils are equal, round and reactive to light. V: Facial sensation is grossly normal. VII: Facial movements and expression are normal. VIII: Auditory acuity grossly intact. IX, X: Uvula is midline. Phonation is normal. XI: Patient shrugs shoulders and turns head normally. XII: Tongue protrudes in the midline. Sensory and Motor Function: Sensory and motor sensation is grossly normal. Motor: moves all extremities well. Coordination: Gait is normal. Deep Tendon Reflexes: Intact. IMPRESSION Psychiatric admission. RECOMMENDATIONS PSYCHIATRIC: Per psychiatrist. MEDICAL: No contraindications to participate in facility's activities. MEDICAL PROGNOSIS Good. Dictated by... Gus Arias/sher TD: 08/30/2016 21:53 JOB #: [id number] Unit #: [id number] #: [id number] Patient: OCTAVIA ESPINAL HISTORY AND PHYSICAL Page 1 of 1 X Marlyn Lopez APR X HISTORY AND PHYSICAL
--- NOTE | ~2016-08-30 | DS ---
Unit #: [id number] #: [id number] Patient: OCTAVIA ESPINAL [id number] [facility] [address] [place] [address] [id number] I MR#: [id number] NAME: OCTAVIA ESPINAL. ROOM: P132 Age: 31 Sex: F Admission Date: 08/30/2016 : 1985 Discharge Date: 09/04/2016 Attending Physician: Liliam Bennett M.D. DISCHARGE SUMMARY IDENTIFYING DATA Ms. Espinal is a 31-year-old white female, who is very well known to us from previous multiple encounters and was self-referred to the hospital. DISCHARGE DIAGNOSES Psychiatric: Schizoaffective disorder, bipolar type, most recent episode depressed, recurrent, moderate, with psychosis. Medical: Hypertension. Stressors: Moderate psychosocial stressors. HISTORY OF PRESENT ILLNESS Please see initial psychiatric evaluation for details. PAST PSYCHIATRIC HISTORY Please see initial psychiatric evaluation for details. PAST MEDICAL HISTORY Please see initial psychiatric evaluation for details. HOSPITAL COURSE The patient was admitted to the adult psychiatric unit at [facility] and was oriented to the hospital environment. Routine p.r.n. medications were initiated, and she was started back on her home medications including her Lexapro, Depakote, and Seroquel as she has history of poor compliance and all forms of psychiatric treatment including medication management as well as outpatient followup. She was then closely monitored as she was taking the medications regularly and was tolerating them fairly well and was able to show a fairly decent therapeutic response with improvement in depression and anxiety and was willing to continue treatment on an outpatient basis. She was denying any suicidal ideations, intent, or plan and no acute psychosis was noticed and she was not seen to be a danger to self and anyone else and therefore it was decided that she will be discharged home and will continue treatment on an outpatient basis. DISCHARGE MEDICATIONS Depakote 500 mg b.i.d. for mood disorder, Seroquel 300 mg at bedtime for psychosis, and Lexapro 10 mg a day for depression. DISCHARGE CONDITION Stable. PROGNOSIS Fair. Unit #: [id number] #: [id number] Patient: OCTAVIA ESPINAL Dictated by... Liliam Bennett M.D. IAA/modl TD: 09/04/2016 07:02 JOB #: [id number] DISCHARGE SUMMARY Page 1 of 1 X Liliam Bennett MD DISCHARGE SUMMARY
--- NOTE | ~2016-08-30 | PN ---
Unit #: [id number] #: [id number] Patient: OCTAVIA ESPINAL [id number] [facility] [address] [place] [address] [id number] I MR#: [id number] NAME: OCTAVIA ESPINAL. ROOM: P132 Age: 31 Sex: F Admission Date: 08/30/2016 : 1985 Attending Physician: Liliam Bennett M.D. Admitting Physician: Liliam Bennett M.D. Primary Care Physician: Tessa Doctor Not In System [facility] PROGRESS NOTES DATE 09/03/2016 DISCUSSION Ms. Espinal is a 31-year-old white female who was seen today and chart was reviewed and case was discussed with the staff. She has been anxious, withdrawn and rather seclusive to herself. Meanwhile, she has been cooperative with treatment recommendations and has been taking the medications and tolerating them fairly well with no reported side effects. MENTAL STATUS EXAMINATION Young white female who was casually dressed with fair personal hygiene and appears to be in slight distress or discomfort. She was awake and alert with impaired attention and concentration. Her mood was anxious and depressed with congruent affect. Her speech is slow and restricted in content. Her thought processes were disorganized with some looseness of associations and paranoid ideations. Her insight and judgement remains significantly impaired. TREATMENT PLAN 1. Will continue on current medications and treatment protocol. Will monitor her response to the medications and make further adjustments as needed. 2. Will continue to follow up. Dictated by... Prisca Law/sher TD: 09/03/2016 22:15 JOB #: [id number] Unit #: [id number] #: [id number] Patient: OCTAVIA ESPINAL [facility] PROGRESS NOTES Page 1 of 1 X Liliam Bennett MD PROGRESS NOTE
--- NOTE | ~2016-08-30 | PN ---
Unit #: [id number] #: [id number] Patient: OCTAVIA RUIZ [id number] [facility] [address] [place] [address] [id number] I MR#: [id number] NAME: OCTAVIA RUIZ. ROOM: P132 Age: 31 Sex: F Admission Date: 08/30/2016 : 1985 Attending Physician: Liliam Bennett M.D. Admitting Physician: Prisca Law NOTES DATE OF SERVICE: 08/31/2016 SUBJECTIVE Ms. Ruiz is a 32-year-old white female who was seen today and chart was reviewed, and case was discussed with the staff. She has been anxious, withdrawn, though has not shown any agitation, irritability, and has been cooperative with treatment recommendations. She has been taking medications and tolerating them fairly well with no reported side effects. MENTAL STATUS EXAMINATION Young white female who was casually dressed with fair personal hygiene, appears to be in no acute distress or discomfort. She was awake and alert with impaired attention and concentration. Her mood was anxious with a congruent affect. Her speech was slow and tangential. Her thought processes were disorganized with some looseness of associations, paranoid ideations, and delusional behavior as well as suicidal ideations. Her insight and judgment remain significantly impaired. TREATMENT PLAN 1. We will continue on her current treatment protocol. We will monitor her response and make further adjustments as needed. 2. We will continue to follow up. Dictated by... Prisca Law/micah TD: 09/01/2016 14:18 JOB #: [id number] JOANNA POWELL NOTES Page 1 of 1 X Liliam Bennett MD X PROGRESS NOTE
--- NOTE | ~2016-08-30 | PN ---
Unit #: [id number] #: [id number] Patient: OCTAVIA ESPINAL [id number] [facility] [address] [place] [address] [id number] MR#: [id number] NAME: OCTAVIA ESPINAL. ROOM: P132 Age: 31 Sex: F Admission Date: 08/30/2016 : 1985 Attending Physician: Liliam Bennett M.D. Admitting Physician: Liliam Bennett M.D. Primary Care Physician: Tessa Doctor Not In System [facility] PROGRESS NOTES DATE OF SERVICE 09/02/2016 DISCUSSION Ms. Espinal is a 31-year-old white female with substance abuse and mood disorder who was seen today. Chart was reviewed and case was discussed with the staff. She has been anxious, withdrawn, and rather seclusive to herself. Meanwhile, she has been taking the medications and tolerating them fairly well with no reported side effects. Meanwhile, she has been exhibiting bizarre behavior with disorganized thought and speech. She has been taking the medications and tolerating them fairly well but has not been able to show a therapeutic response. MENTAL STATUS EXAMINATION Young white female who is casually dressed with fair personal hygiene and appears to be in no acute distress or discomfort. She was awake and alert on interaction with intact orientation. Her mood is anxious with congruent affect. Her speech is slow and restricted in content. Her thought processes were disorganized with some looseness of associations. Her insight and judgment remain significantly impaired. TREATMENT PLAN We will continue her on her current treatment protocol. We will monitor her response and make further adjustments as needed. Dictated by... Prisca Law/leobardo TD: 09/03/2016 09:56 JOB #: [id number] Unit #: [id number] #: [id number] Patient: [facility] PROGRESS NOTES Page 1 of 1 X Liliam Bennett MD PROGRESS NOTE
--- NOTE | ~2016-08-30 | PA ---
Unit #: [id number] #: [id number] Patient: OCTAVIA ESPINAL [id number] [facility] [address] [place] [address] [id number] MR#: [id number] NAME: OCTAVIA ESPINAL. ROOM: P132 Age: 31 Sex: F Admission Date: 08/30/2016 : 1985 Date of Assessment: Attending Physician: Liliam Bennett M.D. Admitting Physician: Liliam Bennett M.D. Primary Care Physician: Generic Doctor Not In System PSYCHIATRIC ASSESSMENT DATE OF SERVICE 08/30/2016. IDENTIFYING DATA Ms. Espinal is a 31-year-old single white female with history of chronic mental illness and substance abuse, who is known to me from previous encounter, is a resident of [place], [place], and was self-referred back to the hospital. CHIEF COMPLAINT "I have been having suicidal thoughts." HISTORY OF PRESENT ILLNESS Ms. Espinal is a 31-year-old white female, who was self-referred back to the hospital, and upon presentation, she stated that she is here due to being suicidal with feelings to cut herself or cut her wrist or overdose on something, and she was at [facility] last night due to feeling like she was having a panic attack and not feeling right, but she reports that she was discharged and her feelings of suicidal ideation became more overwhelming overnight and reports that she has been seeing a shadow and hearing a voice of someone telling her to hurt herself. She reports that she is on disability due to mental health issues and has been staying in various shelters and has been homeless the entire winter and reports some distant family members have passed last winter; however, she reports poor social support system being the main trigger including being homeless and does endorse increasing depression, anxiety, irritability, restlessness, feelings of hopelessness and helplessness, and suicidal ideation and as such, a recommendation for inpatient level of care was made. SUBSTANCE ABUSE HISTORY The patient has an extensive history of substance abuse and dependence including opioid being her drug of choice, but she denies any current substance abuse and was not seen to be acutely detoxing. PAST MEDICAL HISTORY The patient's medical history is significant for hypertension and gastroesophageal reflux disease. ALLERGIES No known medication allergies. PERSONAL AND SOCIAL HISTORY A 31-year-old white female who reports that she is single, unemployed, and Unit #: [id number] #: [id number] Patient: OCTAVIA ESPINAL essentially homeless and has poor social support system. MENTAL STATUS EXAMINATION Young white female, who was casually dressed with fair personal hygiene, appears to be in no acute distress or discomfort. She was awake and alert on interaction with intact orientation to time, place, and person. Her mood was anxious and depressed with a congruent affect. Her speech was slow and restricted in content. Her thought processes were disorganized with some looseness of associations, flight of ideas, paranoid ideations, suicidal ideations, and delusional behavior. Her insight and judgment remain significantly impaired. DIAGNOSTIC IMPRESSION Psychiatric: Schizoaffective disorder, bipolar type, most recent episode depressed, recurrent, moderate, with psychosis and opioid abuse. Medical: None. Stressors: Moderate psychosocial stressors. TREATMENT PLAN 1. The patient has presented with a history of mood disorder and substance abuse, and we will recommend inpatient hospitalization for safety and stabilization. We will start her back on her home medications. We will monitor response and make further adjustments as needed. 2. Supportive therapy was provided to the patient. ESTIMATED LENGTH OF STAY 5 to 7 days. ABILITY TO HELP SELF Limited. WILLINGNESS TO HELP SELF The patient appears to be willing to help self. STRENGTHS 1. Communicative. 2. Cooperative. PROBLEMS 1. Chronic dysphoric symptoms. 2. Poor social support system. DISCHARGE CRITERIA This will be contingent upon the patient's ability to show resolution of her depression and anxiety and psychosis and her ability to stay safe to herself, particularly after discharge from the hospital. Dictated by... Prisca Law/micah TD: 08/31/2016 13:03 JOB #: [id number] Unit #: [id number] #: [id number] Patient: OCTAVIA ESPINAL PSYCHIATRIC ASSESSMENT Page 1 of 1 X Liliam Bennett MD X PSYCHIATRIC ASSESSMENT
== END 2016-09-04 09:50 | DRG 885 ==
LOC: P1S 12:15 → POF 08-31 07:24 → P1S 08-31 07:25
DX: F31.5 Bipolar disorder, current episode depressed, severe, with psychotic features (principal); R45.851 Suicidal ideations; I10 Essential (primary) hypertension; F11.10 Opioid abuse, uncomplicated; Z59.0 Homelessness; K21.9 Gastro-esophageal reflux disease without esophagitis; F17.210 Nicotine dependence, cigarettes, uncomplicated

== ENCOUNTER 2016-09-06 23:12 | Inpatient (IN) | payer OTHER ==
--- NOTE | ~2016-09-06 | PA ---
Unit #: [id number] #: [id number] Patient: OCTAVIA ESPINAL [id number] [facility] [address] [place] [address] [id number] I MR#: [id number] NAME: OCTAVIA ESPNIAL. ROOM: P252 Age: 31 Sex: F Admission Date: 09/06/2016 : 1985 Date of Assessment: Attending Physician: Liliam Bennett M.D. Admitting Physician: Liliam Bennett M.D. PSYCHIATRIC ASSESSMENT DATE OF SERVICE 09/07/2016. IDENTIFYING DATA Ms. Espinal is a 31-year-old single white female, who is a resident of [place], [place], and was self-referred to the hospital and was just discharged from my care and was unable to follow with outpatient treatment program and was brought to the hospital again in an acute psychotic state. CHIEF COMPLAINT "I have multiple issues and I want to kill myself." HISTORY OF PRESENT ILLNESS A 31-year-old white female with history of chronic mental illness, who reports that she is delusional and that she is struggling with mental health issues and she has multiple life and health stressors and that she needs get medication and talk to the doctor and stated that she is in the process of losing custody of her children and that she is paranoid and does not feel comfortable with discussing her problem with others and that she has a lot of problems and cannot make her life decisions and that she is only taking half of her prescription medication because she is living from place to place right now and cannot risk being sleepy for too long and reports that every hour and every day she wants to harm herself and that she would take a straight raise and slit her wrist really fast. She has been homeless and unemployed and has poor social support system. When approached, the patient was laying in her bed and was exhibiting acute psychosis with rambling stating that she has too many issues and she is under of a lot of stress and then she was referring to her roommate who just got admitted stating that she is now worried about her issues and she does not feel threatened by her and that people outside are threatening her and was difficult to be redirected and was completely out of touch with reality and it appears that she has been noncompliant with medications outside of the hospital due to poor social support system that leads to rapid decompensation and now she reports increasing depression, anxiety, agitation, irritability, feelings of hopelessness and helplessness, suicidal ideation with increasing paranoia, and delusional behavior. SUBSTANCE ABUSE HISTORY The patient denies any alcohol or drug abuse. PAST PSYCHIATRIC HISTORY The patient has had a history of multiple inpatient psychiatric Unit #: [id number] #: [id number] Patient: OCTAVIA ESPINAL hospitalizations at [facility], and review of the medical records indicate that she has been diagnosed and treated for schizoaffective disorder and is supposed to be on a combination of Lexapro, Seroquel, and Depakote, but has been noncompliant with her medications and as such, has been decompensating. PAST MEDICAL HISTORY The patient's medical history is insignificant. ALLERGIES No known medication allergies. PERSONAL AND SOCIAL HISTORY A 31-year-old white female, who reports that she is single, unemployed, and essentially homeless and has poor social support system. MENTAL STATUS EXAMINATION Young white female, who was casually dressed with fair personal hygiene, appears to be in no acute distress or discomfort. She was awake and alert on interaction with intact orientation to time, place, and person. Her mood was anxious and depressed with a congruent affect. Her speech was slow and restricted in content. Her thought processes were disorganized with some looseness of associations and flight of ideas and paranoid ideations and delusional behavior. She also reports suicidal ideations. Her insight and judgment remain significantly impaired. DIAGNOSTIC IMPRESSION Psychiatric: Schizoaffective disorder, bipolar type, most recent episode depressed, recurrent, moderate, with psychosis. Medical: None. Stressors: Moderate psychosocial stressors. TREATMENT PLAN 1. The patient has presented with a history of substance abuse and mood disorder and psychosis and has been decompensating and will need inpatient hospitalization for safety and stabilization and we will recommend inpatient hospitalization for safety and stabilization. We will start her back on her home medications and we will adjust the medications and monitor response. 2. Supportive therapy was provided to the patient. 3. Safe, structured, and nourishing environment will be provided. ESTIMATED LENGTH OF STAY 4 to 5 days. ABILITY TO HELP SELF Limited. WILLINGNESS TO HELP SELF The patient appears to be willing to help self. STRENGTHS 1. Communicative. 2. Cooperative. PROBLEMS 1. Chronic dysphoric symptoms. 2. Chronic chemical dependency. 3. Poor social support system. Unit #: [id number] #: [id number] Patient: OCTAVIA ESPINAL DISCHARGE CRITERIA This will be contingent upon the patient's ability to go through detox without having any significant withdrawal symptoms as well as her ability to stay safe to herself, particularly after discharge from the hospital. Dictated by... Prisca Law/micah TD: 09/07/2016 09:50 JOB #: [id number] PSYCHIATRIC ASSESSMENT Page 1 of 1 X Liliam Bennett MD X PSYCHIATRIC ASSESSMENT
--- NOTE | ~2016-09-06 | DS ---
Unit #: [id number] #: [id number] Patient: OCTAVIA RUIZ [id number] [facility] [address] [place] [address] [id number] MR#: [id number] NAME: OCTAVIA RUIZ. ROOM: P252 Age: 31 Sex: F Admission Date: 09/06/2016 : 1985 Discharge Date: Attending Physician: Liliam Bennett M.D. DISCHARGE SUMMARY IDENTIFYING DATA Ms. Ruiz is a 31-year-old white female, who is a resident of [place], [place], and is known to us from previous encounter, was self-referred to the hospital. DISCHARGE DIAGNOSES Psychiatric: Schizoaffective disorder, bipolar type, most recent episode depressed, recurrent, moderate, with psychosis. Medical: None. Stressors: Moderate psychosocial stressors. HISTORY OF PRESENT ILLNESS Please see initial psychiatric evaluation for details. PAST PSYCHIATRIC HISTORY Please see initial psychiatric evaluation for details. PAST MEDICAL HISTORY Please see initial psychiatric evaluation for details. HOSPITAL COURSE The patient was admitted to the adult psychiatric unit at [facility] and was oriented to the hospital environment. Routine p.r.n. medications were initiated, and she was started back on her home medications including her Depakote and Seroquel and Lexapro and was closely monitored. She was taking the medications regularly and was tolerating them fairly well and was able to show a decent and therapeutic response with improvement in depression and anxiety and was willing to continue treatment on an outpatient basis and as such, it was decided that she will be discharged home and will continue treatment on an outpatient basis. DISCHARGE MEDICATIONS Seroquel 300 mg at bedtime for bipolar, Depakote 500 mg b.i.d. for bipolar, Lexapro 10 mg a day for depression. DISCHARGE CONDITION Stable. PROGNOSIS Fair. Dictated by... Unit #: [id number] #: [id number] Patient: OCTAVIA RUIZ Pirsca Law/micah TD: 09/10/2016 07:22 JOB #: [id number] DISCHARGE SUMMARY Page 1 of 1 X Liliam Bennett MD DISCHARGE SUMMARY
--- NOTE | ~2016-09-06 | PN ---
Unit #: [id number] #: [id number] Patient: OCTAVIA RUIZ [id number] [facility] [address] [place] [address] [id number] I MR#: [id number] NAME: OCTAVIA RUIZ. ROOM: P252 Age: 31 Sex: F Admission Date: 09/06/2016 : 1985 Attending Physician: Liliam Bennett M.D. Admitting Physician: Liliam Bennett M.D. Primary Care Physician: Primary Care Physician Jovanna MARSHALL PROGRESS NOTES DATE 09/08/2016 DISCUSSION Ms. Ruiz is a 31-year-old white female with mood disorder and psychosis who was seen today and chart was reviewed and case was discussed with the staff. She has been anxious, withdrawn and rather seclusive to herself with bizarre behavior and inability to carry on meaningful conversation. Meanwhile, she has been taking the medications and tolerating them fairly well with no reported side effects. MENTAL STATUS EXAMINATION Young white female who was casually dressed with fair personal hygiene, appears to be in no acute distress or discomfort. She was awake and alert on interaction with intact orientation. Her mood was anxious with congruent affect. She denies any suicidal or homicidal ideations. Her insight and judgement remains slightly impaired. TREATMENT PLAN 1. We will continue her on her current medications and treatment protocol. We will monitor her response to the medication and make further adjustments as needed. 2. We will continue to follow up. Dictated by... Prisca Law/arianne TD: 09/09/2016 22:32 JOB #: [id number] Unit #: [id number] #: [id number] Patient: OCTAVIA RUIZ JOANNA PROGRESS NOTES Page 1 of 1 X Liliam Bennett MD PROGRESS NOTE
--- NOTE | ~2016-09-06 | PN ---
Unit #: [id number] #: [id number] Patient: OCTAVIA ESPINAL [id number] [facility] [address] [place] [address] [id number] I MR#: [id number] NAME: OCTAVIA ESPINAL. ROOM: P252 Age: 31 Sex: F Admission Date: 09/06/2016 : 1985 Attending Physician: Liliam Bennett M.D. Admitting Physician: Liliam Bennett M.D. Primary Care Physician: Jovanna Primary Care Physician [facility] PROGRESS NOTES DATE 09/09/2016. DISCUSSION Octavia Espinal is a 31-year-old white female who was seen today and chart was reviewed and case was discussed with the staff. She has been anxious and withdrawn, (1) agitation and has been cooperative. She has been taking the medications and tolerating them fairly well. She reports no side effects. MENTAL STATUS EXAMINATION Young white female who was casually dressed with fair personal hygiene, appears to be in no acute distress or discomfort. She was awake and alert. Her mood was anxious with congruent affect. She denies any suicidal or homicidal ideations. Her insight and judgement remain slightly impaired. TREATMENT PLAN 1. We will continue her on her current medications and treatment protocol. We will monitor her response to the medication and make further adjustments as needed. 2. We will continue to follow up. Dictated by... Liliam Bennett M.D. IAA/gz TD: 09/10/2016 14:05 JOB #: [id number] [facility] PROGRESS NOTES Page 1 of 1 X Liliam Bennett MD PROGRESS NOTE
--- NOTE | ~2016-09-06 | HP ---
Unit #: [id number] #: [id number] Patient: EDUARDA ESPINAL [id number] [place] [address] [id number] MR#: [id number] NAME: EDUARDA ESPINAL. ROOM: P252 Age: 31 Sex: F Admission Date: 09/06/2016 : 1985 Attending Physician: Liliam Bennett M.D. Admitting Physician: Liliam Bennett M.D. Primary Care Physician: Primary Care Physician No HISTORY AND PHYSICAL HISTORY OF PRESENT ILLNESS Eduarda is a 31-year-old female admitted on 09/06/2016 to [place] for depression and suicidal ideation as well as auditory and visual hallucinations who was recently admitted on August 30, 2016 for the same. I reviewed the history and physical from that admission and there are no changes. Dictated by... Gus Brooks/arianne TD: 09/07/2016 20:54 JOB #: [id number] HISTORY AND PHYSICAL Page 1 of 1 X JUDE CROCKETT APRN X HISTORY AND PHYSICAL
== END 2016-09-10 12:15 | disposition home or self-care (01) | DRG 885 ==
LOC: P1E 23:12 → P2L 09-07 14:25
PROC: HZ2ZZZZ Detoxification Services for Substance Abuse Treatment (ICD-10-PCS; principal; 2016-09-06)
DX: F25.0 Schizoaffective disorder, bipolar type (principal); F31.32 Bipolar disorder, current episode depressed, moderate; R45.851 Suicidal ideations; Z91.14 Patient's other noncompliance with medication regimen; Z56.0 Unemployment, unspecified; Z59.0 Homelessness; F19.10 Other psychoactive substance abuse, uncomplicated

== ENCOUNTER 2016-10-28 22:15 | Inpatient (IN) | payer OTHER ==
--- NOTE | ~2016-10-28 | PA ---
Unit #: [id number] #: [id number] Patient: OCTAVIA ESPINAL [id number] [facility] [address] [place] [address] [id number] I MR#: [id number] NAME: OCTAVIA ESPINAL. ROOM: P266 Age: 31 Sex: F Admission Date: 10/29/2016 : 1985 Date of Assessment: 10/29/2016 Attending Physician: Liliam Bennett M.D. Admitting Physician: Liliam Bennett M.D. Primary Care Physician: Primary Care Physician No PSYCHIATRIC ASSESSMENT IDENTIFYING DATA Ms. Espinal is a 31-year-old single white female, who is a resident of [place], [place], and was self-referred to the hospital on voluntary basis. CHIEF COMPLAINT "I'm seeing things." HISTORY OF PRESENT ILLNESS Ms. Espinal is a 31-year-old white female with history of substance abuse and mood disorder, who was self-referred to the hospital stating that she is stressed out right now and that was noticed to be talking nonsensical and was talking rapidly and was hard to understand and reports that she has been seeing things, but denied any auditory hallucination, reports that a man with a going to kill her and that she has left her medications behind and reports having a severe headache and was talking about civil litigation case and that if she does not get her son back to the following, then she is and was seen to be very paranoid. The patient reportedly has not been sleeping and reports that she is afraid to sleep because of the nightmares and was laughing hysterically and kept moving around the assessment room and was talking about a man pointing a gun at her and reports the man is asking for her to help him to look for a little boy and sexual favors and reports seeing a man in her room and a man in her yard with a gun and reports being able to see better in the dark than the light and was seemed to be quite disorganized with paranoid delusional behavior, visual hallucinations, agitation, and irritability, and was also noticed to be out of touch with reality, and as such, recommendation for inpatient level of care for safety and stabilization was made, and the patient was transferred to us. SUBSTANCE ABUSE HISTORY The patient denies any current substance abuse, though she has a history of substance abuse in the past, but was apparently trying to mask and minimize her substance abuse issues. PAST PSYCHIATRIC HISTORY The patient has a history of inpatient psychiatric hospitalization at [facility] and has history of poor compliance with any treatment recommendation, and once again, she is not taking her psychotropic medication as such has been decompensating. PAST MEDICAL HISTORY Unit #: [id number] #: [id number] Patient: OCTAVIA ESPINAL No acute or chronic medical illness. ALLERGIES No known medication allergies. PERSONAL AND SOCIAL HISTORY A 31-year-old white female, who reports that she is single, unemployed, and is essentially homeless and has poor social support system. MENTAL STATUS EXAMINATION Young white female, who was casually dressed with fair personal hygiene, appears to be in no acute distress or discomfort. She was awake and alert on interaction with intact orientation. Her mood was anxious with a congruent affect. Her speech was slow and goal directed. Her thought processes were disorganized with some looseness of associations and paranoid ideations and delusional behavior. Her insight and judgment remain significantly impaired. DIAGNOSTIC IMPRESSION Psychiatric: Schizoaffective disorder, bipolar type, most recent episode manic with psychosis. Medical: None. Stressors: Moderate psychosocial stressors. TREATMENT PLAN 1. The patient has presented with history of mood disorder and psychosis and has been decompensating and will need inpatient hospitalization for safety and stabilization. We will start him back on his home medications. We will adjust the medications and monitor response. 2. Supportive therapy was provided to the patient. 3. Safe, structured, and nourishing environment will be provided. ESTIMATED LENGTH OF STAY 4 to 5 days. ABILITY TO HELP SELF Limited. WILLINGNESS TO HELP SELF The patient appears to be willing to help self. STRENGTHS 1. Communicative. 2. Cooperative. PROBLEMS 1. Chronic dysphoric symptoms. 2. Poor social support system. DISCHARGE CRITERIA This will be contingent upon the patient's ability to show resolution of her psychosis and her ability to stay safe to herself, particularly after discharge from the hospital. Dictated by... Liliam Bennett M.D. Unit #: [id number] #: [id number] Patient: MARGUERITE ESPINALFRANCIS Scott IAA/modl TD: 10/29/2016 07:48 JOB #: [id number] PSYCHIATRIC ASSESSMENT Page 1 of 1 X Liilam Bennett MD PSYCHIATRIC ASSESSMENT
--- NOTE | ~2016-10-28 | HP ---
Unit #: [id number] #: [id number] Patient: EDUARDA ESPINAL [id number] [place] [address] [id number] MR#: [id number] NAME: EDUARDA ESPINAL. ROOM: P266 Age: 31 Sex: F Admission Date: 10/29/2016 : 1985 Attending Physician: Liliam Bennett M.D. Admitting Physician: Liliam Bennett M.D. Primary Care Physician: Primary Care Physician No HISTORY AND PHYSICAL HISTORY OF PRESENT ILLNESS Eduarda is a 31 year old admitted to [facility] with depression and verbalizing wanting to hurt herself. PAST MEDICAL HISTORY 1. History of cerebral aneurysm a. Cranial surgery, November 2015 2. History of polysubstance abuse to include opioids and benzodiazepines PAST SURGICAL HISTORY 1. As above 2. Tubal ligation ALLERGIES No known drug allergies. SOCIAL HISTORY Smokes one-half pack per day. Denies alcohol. Admits to a history of poly illicit substance abuse. FAMILY HISTORY Medically noncontributory. REVIEW OF SYSTEMS She does not answer questions appropriately. There are no reports of nausea, vomiting or diarrhea. She has had no cough or increased temperature. CURRENT MEDICATIONS 1. Seroquel 300 mg q.h.s. 2. Lexapro 10 mg q.a.m. 3. Depakote 500 mg b.i.d. 4. Nicotine patch 14 mg q day 5. Vistaril p.r.n. 6. Desyrel p.r.n. 7. Milk of Magnesia p.r.n. 8. Maalox p.r.n. 9. Tylenol p.r.n. PHYSICAL EXAMINATION GENERAL: Alert, well-nourished, in no apparent distress. VITAL SIGNS: Blood pressure 120/88, heart rate 80, respirations 16, Unit #: [id number] #: [id number] Patient: EDUARDA ESPINAL temperature 98.6. WEIGHT: 130 pounds. HEIGHT: 5'2". SKIN: Warm and dry without rash or lesion. HEENT: Normocephalic. TMs not viewed. Oral and nasal passages clear. Conjunctivae clear. Pupils equal, round and reactive to light and accommodation. Extraocular movements intact. NECK: Supple without lymphadenopathy or thyromegaly. HEART: Regular rate and rhythm without murmur. LUNGS: Clear. ABDOMEN: Soft, nontender. : Not done. EXTREMITIES: No evidence of cyanosis, clubbing or edema. Moves all extremities without focal deficit. NEUROLOGICAL: Grossly within normal limits. Cranial Nerves: II: Visual perez are intact. III, IV AND : Extraocular movements are intact. Pupils are equal, round and reactive to light. V: Facial sensation is grossly normal. VII: Facial movements and expression are normal. VIII: Auditory acuity grossly intact. IX, X: Uvula is midline. Phonation is normal. XI: Patient shrugs shoulders and turns head normally. XII: Tongue protrudes in the midline. Sensory and Motor Function: Sensory and motor sensation is grossly normal. Motor: moves all extremities well. Coordination: Gait is normal. Deep Tendon Reflexes: Intact. IMPRESSION Psychiatric admission RECOMMENDATIONS PSYCHIATRIC: Per psychiatrist. MEDICAL: I see no contraindications to participating in facility's activities. MEDICAL PROGNOSIS Good. MEDICAL CONDITION Stable. Dictated by... Jennifer Rendon P.A.-C. for Prisca Yanez/arianne TD: 10/30/2016 00:46 JOB #: [id number] Unit #: [id number] #: [id number] Patient: EDUARDA ESPINAL HISTORY AND PHYSICAL Page 1 of 1 X Jennifer Rendon HISTORY AND PHYSICAL
--- NOTE | ~2016-10-28 | PN ---
Unit #: [id number] #: [id number] Patient: OCTAVIA RUIZ [id number] [facility] [address] [place] [address] [id number] I MR#: [id number] NAME: OCTAVIA RUIZ. ROOM: P266 Age: 31 Sex: F Admission Date: 10/29/2016 : 1985 Attending Physician: Liliam Bennett M.D. Admitting Physician: Liliam Bennett M.D. Primary Care Physician: Primary Care Physician Jovanna MARSHALL PROGRESS NOTES DATE OF SERVICE 10/30/2016 DISCUSSION Ms. Ruiz is a 31-year-old white female who was seen today. Chart was reviewed and case was discussed with the staff. She has been anxious, withdrawn, and rather seclusive to herself. Meanwhile, she has been cooperative with the treatment recommendations and has been taking the medications and tolerating them fairly well with no reported side effects. MENTAL STATUS EXAMINATION Young white female who is casually dressed with fair personal hygiene, appears to be in slight distress or discomfort. She was awake and alert with impaired attention and concentration. Her mood is anxious with a congruent affect. Her speech is slow and restricted in content. She denies any suicidal or homicidal ideations and also denies any auditory or visual hallucinations. Her insight and judgment remain slightly impaired. TREATMENT PLAN 1. We will continue her on her current treatment protocol. We will monitor her response to the medications and make further adjustments as needed. 2. We will continue to follow up. Dictated by... Prisca Law/leobardo TD: 10/30/2016 12:36 JOB #: [id number] Unit #: [id number] #: [id number] Patient: OCTAVIA RUIZ JOANNA PROGRESS NOTES Page 1 of 1 X Liliam Bennett MD PROGRESS NOTE
--- NOTE | ~2016-10-28 | DS ---
Unit #: [id number] #: [id number] Patient: OCTAVIA RUIZ [id number] [facility] [address] [place] [address] [id number] I MR#: [id number] NAME: OCTAVIA RUIZ. ROOM: P266 Age: 31 Sex: F Admission Date: 10/29/2016 : 1985 Discharge Date: 11/01/2016 Attending Physician: Liliam Bennett M.D. DISCHARGE SUMMARY IDENTIFYING DATA Ms. Ruiz is a 31-year-old single white female who is a resident of [place], [place], and was self-referred to the hospital on a voluntary basis. DISCHARGE DIAGNOSES Psychiatric: Schizoaffective disorder, bipolar type, most recent episode manic with psychosis. Medical: None. Stressors: Psychosocial stressors. HISTORY OF PRESENT Please see initial psychiatric evaluation for details. PAST PSYCHIATRIC HISTORY Please see initial psychiatric evaluation for details. PAST MEDICAL HISTORY Please see initial psychiatric evaluation for details. HOSPITAL COURSE The patient was admitted to the adult psychiatric unit at [facility] and was oriented to the hospital environment. Routine p.r.n. medications were initiated, and she was started back on her home medications from previous medical records. The patient had been noncompliant with the medication. However, she once again was seen to be very irritable and disrespectful, refusing to cooperate with any treatment recommendations and refusing to talk to me or talk to her therapist and just wanted to lay and sleep and eat, was not going to any therapy groups and has history of poor compliance with outpatient treatment recommendation and as such, it was decided that she will be discharged to home. We will continue treatment on an outpatient basis. DISCHARGE MEDICATIONS Seroquel 300 mg at bedtime for bipolar disorder, Depakote 500 mg twice a day for bipolar, Lexapro 10 mg in the morning for depression. DISCHARGE CONDITION Stable. PROGNOSIS Fair. Dictated by... Unit #: [id number] #: [id number] Patient: OCTAVIA RUIZ Prisca Law/maul TD: 11/01/2016 11:52 JOB #: [id number] DISCHARGE SUMMARY Page 1 of 1 X Liliam Bennett MD DISCHARGE SUMMARY
--- NOTE | ~2016-10-28 | PN ---
Unit #: [id number] #: [id number] Patient: OCTAVIA ESPINAL [id number] [facility] [address] [place] [address] [id number] I MR#: [id number] NAME: OCTAVIA ESPINAL. ROOM: P266 Age: 31 Sex: F Admission Date: 10/29/2016 : 1985 Attending Physician: Liliam Bennett M.D. Admitting Physician: Liliam Bennett M.D. Primary Care Physician: Primary Care Physician Jovanna MARSHALL PROGRESS NOTES DATE 10/31/2016 DISCUSSION Ms. Espinal is a 31-year-old white female who was seen today and chart was reviewed and case was discussed with the staff. She remains anxious, withdrawn, rather seclusive to herself and is minimally interested in any treatments and is not going to therapy groups neither does she appear to be participating in treatment related activities. MENTAL STATUS EXAMINATION Young white female who was casually dressed with fair personal hygiene and appears to be in no acute distress or discomfort. She was awake and alert on interaction with intact orientation. Her mood was anxious with congruent affect. She denies any suicidal or homicidal ideation. Her insight and judgement remains slightly impaired. TREATMENT PLAN 1. Will continue on current medications and treatment protocol. Will monitor her response to the medications and make further adjustments as needed. 2. Will continue to follow up. Dictated by... Liliam Bennett M.D. IAA/sher TD: 10/31/2016 16:50 JOB #: [id number] Unit #: [id number] #: [id number] Patient: OCTAVIA ESPINAL PROGRESS NOTES Page 1 of 1 X Liliam Bennett MD PROGRESS NOTE
[2016-10-31 09:41] LABS: URINE APPEARANCE CLOUDY; URINE BILIRUBIN NEG (NEG); URINE BLOOD NEG (NEG); URINE COLOR DK YELLOW; URINE GLUCOSE NEG (NEG); URINE KETONE TRACE (NEG); URINE LEUKOCYTE ESTERASE 1+ (NEG); URINE NITRATE NEG (NEG); URINE PROTEIN NEG (NEG)
[2016-10-31 09:45] LABS: URINE BACTERIA AUWI 1+ (NEGATIVE); URINE SQUAMOUS EPITHELIAL CELL MANY /[HPF]
[2016-10-31 09:51] LABS: BASOPHIL% 0.6 % (0-2.5); EOSINOPHIL# 0.1 X10e3 (0-0.7); EOSINOPHIL% 1.1 % (0.0-7.0); HEMATOCRIT 43.4 % (35.0-45.0); HEMOGLOBIN 14.2 gm/dL (12.0-16.0); LYMPHOCYTE# 4.4 X10e3 (1.0-3.5); LYMPHOCYTE% 53.4 % (17.0-45.0); MEAN CORPUSCULAR HEMOGLOBIN 31.8 PG (28-34); MEAN CORPUSCULAR HGB CONC 32.8 g/dL (30-36); MEAN PLATELET VOLUME 8.4 FL (6.5-11.5); MONOCYTE# 0.8 X10e3 (0-1.0); MONOCYTE% 9.1 % (3.0-12.0); NEUTROPHIL% 35.8 % (40-75); PLATELET COUNT 275 X10e3 (140-420); RED BLOOD COUNT 4.47 X10e (3.90-5.30); RED CELL DISTRIBUTION WIDTH 13.4 % (11.0-15.5); WHITE BLOOD COUNT 8.3 X10e3 (4.0-10.5)
[2016-10-31 09:52] LABS: DIFF IND YES
[2016-10-31 10:02] LABS: URINE CRYSTALS CALCIUM OXALATE /[HPF]
[2016-10-31 10:03] LABS: U HYALINE CASTS AUWI 0-2 /[LPF]; URBCS1 AUWI 0-2 /[HPF] (0-2); URINE MUCUS PRESENT; URINE YEAST PRESENT
[2016-10-31 10:12] LABS: THYROID STIMULATING HORMONE 0.16 uIU/ml (0.34-5.60)
[2016-10-31 10:18] LABS: PLATELET ESTIMATE NORMAL (NORMAL); RBC NORMAL YES
[2016-10-31 10:19] LABS: FREE THYROXIN (T4) 0.97 ng/dL (0.58-1.64)
[2016-10-31 10:54] LABS: ALBUMIN SERUM 3.9 g/dL (3.5-5.0); BILIRUBIN,TOTAL 0.8 mg/dL (0.2-2.0); CALCIUM SERUM 9.5 mg/dL (8.4-10.2); CREATININE SERUM 0.7 mg/dL (0.6-1.4); GLOM FILT RATE Estimated 114.6 mL/min (>60); POTASSIUM 4.2 mmol/L (3.5-5.1); PROTEIN TOTAL SERUM 6.9 g/dL (6.0-8.3)
[2016-10-31 11:25] LABS: AMPHETAMINE POS (NEG); BARBITURATES NEG (NEG); BENZODIAZEPINES NEG (NEG); COCAINE NEG (NEG); MARIJUANA POS (NEG); OPIATES NEG (NEG); TRICYCLIC ANTIDEPRESSANTS POS (NEG); U METHADONE NEG (NEG)
== END 2016-11-01 10:55 | disposition home or self-care (01) | DRG 885 ==
LOC: P2L 10-29 02:05
PROVIDERS: Psychiatry & Neurology Psychiatry
DX: F25.0 Schizoaffective disorder, bipolar type (principal); F17.210 Nicotine dependence, cigarettes, uncomplicated
CPT/HCPCS: 80053; 80307; 81003; 84439; 84443; 84703; 85025; J0515; J1630

== ENCOUNTER 2016-11-29 10:00 | Inpatient (IN) | payer OTHER ==
--- NOTE | ~2016-11-29 | PA ---
Unit #: [id number] #: [id number] Patient: OCTAVIA ESPINAL [id number] [facility] [address] [place] [address] [id number] I MR#: [id number] NAME: OCTAVIA ESPINAL. ROOM: P113 Age: 31 Sex: F Admission Date: 11/29/2016 : 1985 Date of Assessment: Attending Physician: Liliam Bennett M.D. Admitting Physician: Liliam Bennett M.D. Primary Care Physician: Primary Care Physician No PSYCHIATRIC ASSESSMENT DATE OF SERVICE 11/29/2016. IDENTIFYING DATA Ms. Espinal is a 31-year-old single white female, who is a resident of [place], [place], and was transferred to from Emergency Psychiatric Services at [facility]. CHIEF COMPLAINT "I need mental health treatment, the medication need to be changed." HISTORY OF PRESENT ILLNESS Ms. Espinal is a 31-year-old white female with history of schizoaffective disorder and substance abuse and dependence, who presented to the emergency room at [facility], stating "I need mental health treatment, the medication need to be changed." She stated that she goes to [facility] and is on medication "they are not good for me." The patient then discussed that she has been depressed lately and that she feels that she is dying and she claimed that she is on 300 mg of Seroquel and the medication is not listed on the [facility] medication list and reports that she attends AA meeting, but "they treat me bad." The patient then talked about her sexual orientation and "they act like I'm looking for ." The patient was very bizarre in the evaluation and was making statement, the people was accusing her for being a child predator and being intellectually disabled, "I just need a mental health break, I'm not a murderer." The patient stated that her family stated that she has to take Seroquel, but "they are mean." The patient stated that she does not have custody of her children and families' mean, "but I'm not looking for ." The patient would not tell treatment team, where she lives, "it doesn't matter." When asked about her suicidal attempts in the past, the patient stated "just look at my skin and face, don't think I have not thought about it." The patient stated rumor that she overdosed last year, but reports the rumor is not true and the patient was very paranoid during evaluation with bizarre behavior, disorganized thoughts, speech, and was seen to be danger to self and others and therefore, recommendation for inpatient level of care for safety and stabilization was made and the patient was transferred to us. SUBSTANCE ABUSE HISTORY The patient has history of alcohol, cannabis, cocaine, opioids, and amphetamine abuse, and more recently it appears that opioids and methamphetamine have been her drug of choice. Unit #: [id number] #: [id number] Patient: OCTAVIA ESPINAL PAST PSYCHIATRIC HISTORY The patient has had history of multiple inpatient psychiatric hospitalizations at [facility] and has been to [facility], and then [facility] several times, and has had outpatient treatment through [facility], but has been noncompliant with medications and as such, has been decompensating. PAST MEDICAL HISTORY Gastroesophageal reflux disease and hypertension. ALLERGIES No known medication allergies. PERSONAL AND SOCIAL HISTORY A 31-year-old white female, who reports that she is single, unemployed, and disabled, and essentially homeless and has poor social support system. MENTAL STATUS EXAMINATION Young white female, who was casually dressed with fair personal hygiene, appears to be in no acute distress or discomfort. She was awake and alert on interaction with intact orientation to time, place, and person. Her mood was anxious and depressed with congruent affect. Her speech was slow and restricted in content. Her thought processes were disorganized with some looseness of associations and suicidal ideations and paranoid ideations and delusional behavior. Her insight and judgment remain significantly impaired. DIAGNOSTIC IMPRESSION Psychiatric: Schizoaffective disorder, bipolar type, most recent episode depressed, recurrent, moderate, with psychosis; opioid dependence, moderate; methamphetamine dependence, moderate. Medical: None. Stressors: Moderate psychosocial stressors. TREATMENT PLAN 1. The patient has presented with history of mood disorder and psychosis and has been decompensating and will need inpatient hospitalization for safety and stabilization. We will start her back on her home medications. We will adjust the medications and monitor response. 2. Supportive therapy was provided to the patient. 3. Safe, structured, and nourishing environment will be provided. ESTIMATED LENGTH OF STAY 5 to 7 days. ABILITY TO HELP SELF Limited. WILLINGNESS TO HELP SELF The patient appears to be willing to help self. STRENGTHS 1. Communicative. 2. Cooperative. PROBLEMS 1. Chronic dysphoric symptoms. 2. Poor social support system. Unit #: [id number] #: [id number] Patient: OCTAVIA ESPINAL DISCHARGE CRITERIA This will be contingent upon the patient's ability to show resolution of her depression and psychosis and her ability to stay safe to herself, particularly after discharge from the hospital. Dictated by... Liliam Bennett M.D. LIN/micah TD: 11/30/2016 13:34 JOB #: [id number] PSYCHIATRIC ASSESSMENT Page 1 of 1 X Liliam Bennett MD PSYCHIATRIC ASSESSMENT
--- NOTE | ~2016-11-29 | DS ---
Unit #: [id number] #: [id number] Patient: OCTAVIA ESPINAL [id number] [facility] [address] [place] [address] [id number] MR#: [id number] NAME: OCTAVIA ESPINAL ROOM: P113 Age: 31 Sex: F Admission Date: 11/29/2016 : 1985 Discharge Date: Attending Physician: Liliam Bennett M.D. Primary Care Physician: Primary Care Physician No DISCHARGE SUMMARY IDENTIFYING DATA Ms. Espinal is a 31-year-old single white female, who is a resident of [place], [place], and is known to us from previous encounter, was transferred to us from [facility]. DISCHARGE DIAGNOSES Psychiatric: Schizoaffective disorder, bipolar type, most recent episode depressed, recurrent, moderate, with psychosis; opioid dependence, moderate; methamphetamine dependence, moderate. Medical: None. Stressors: Moderate psychosocial stressors. HISTORY OF PRESENT ILLNESS Please see initial psychiatric evaluation for details. PAST PSYCHIATRIC HISTORY Please see initial psychiatric evaluation for details. PAST MEDICAL HISTORY Please see initial psychiatric evaluation for details. HOSPITAL COURSE The [facility] and was oriented to the hospital environment. Routine p.r.n. medications were initiated, and she was started back on her home medications and medications were adjusted and she was initially started back on her previous medication; however, she stated that she does not like either Seroquel or Depakote, and medications were therefore changed and Depakote and Seroquel were taken off and she was started on Zyprexa 10 mg at bedtime with good tolerability and therapeutic response. The patient was taking the medications regularly and was tolerating them fairly well and was able to show a decent and therapeutic response and was denying any thoughts of wanting to hurt herself or anyone else, and no acute psychosis was noticed and as such, it was decided that she will be discharged home and will continue treatment on an outpatient basis. DISCHARGE MEDICATIONS Zyprexa 10 mg at bedtime. DISCHARGE CONDITION Stable. PROGNOSIS Unit #: [id number] #: [id number] Patient: OCTAVIA ESPINAL Fair. Dictated by... Liliam Bennett M.D. IAA/modl TD: 12/03/2016 07:29 JOB #: [id number] DISCHARGE SUMMARY Page 1 of 1 X Liliam Bennett MD DISCHARGE SUMMARY
--- NOTE | ~2016-11-29 | CO ---
Unit #: [id number] #: [id number] Patient: OCTAVIA ESPINAL [id number] [place] [address] [id number] I MR#: [id number] NAME: OCTAVIA ESPINAL. ROOM: P113 Age: 31 Sex: F Admission Date: 11/29/2016 : 1985 Attending Physician: Liliam Bennett M.D. Primary Care Physician: Primary Care Physician No Requesting Physician: Liliam Bennett M.D. CONSULTATION REPORT REASON FOR CONSULTATION Positive trichomonas antigen that was done at . SUBJECTIVE "Yea I have itching and I have discharge but they didn't give me anything for it at [place]." OBJECTIVE Vital signs within normal limits. Noted on chart a positive rapid trichomonas antigen. ASSESSMENT Trichomoniasis PLAN Metronidazole 2 grams as a single dose. Dictated by... Gus Arias/arianne TD: 12/01/2016 02:20 JOB #: [id number] CONSULTATION REPORT Page 1 of 1 X Marlyn Lopez APR X CONSULTATION REPORT
--- NOTE | ~2016-11-29 | PN ---
Unit #: [id number] #: [id number] Patient: OCTAVIA ESPINAL [id number] [facility] [address] [place] [address] [id number] I MR#: [id number] NAME: OCTAVIA ESPINAL. ROOM: P113 Age: 31 Sex: F Admission Date: 11/29/2016 : 1985 Attending Physician: Liliam Bennett M.D. Admitting Physician: Liliam Bennett M.D. Primary Care Physician: Primary Care Physician Jovanna MARSHALL PROGRESS NOTES DATE OF SERVICE: 12/02/2016 SUBJECTIVE Ms. Chang is a 31-year-old white female, who was seen today and chart was reviewed, and case was discussed with the staff. She has been anxious, withdrawn, and rather seclusive to herself. Meanwhile, she has been cooperative with treatment recommendation and has been taking the medications and tolerating them fairly well. MENTAL STATUS EXAMINATION Young white female, who was casually dressed with fair personal hygiene and appears to be in no acute distress or discomfort. She was awake and alert on interaction with intact orientation. Her mood was anxious with a congruent affect. She denies any suicidal or homicidal ideations. Her insight and judgment remain slightly impaired. TREATMENT PLAN 1. We will continue her on her current medications and treatment protocol. We will monitor her response to the medications and make further adjustments as needed. 2. We will continue to follow up. Dictated by... Prisca Law/micah TD: 12/02/2016 23:51 JOB #: [id number] [facility] PROGRESS NOTES Page 1 of 1 X Liliam Bennett MD PROGRESS NOTE
--- NOTE | ~2016-11-29 | PN ---
Unit #: [id number] #: [id number] Patient: OCTAVIA RUIZ [id number] [facility] [address] [place] [address] [id number] I MR#: [id number] NAME: OCTAVIA RUIZ. ROOM: P113 Age: 31 Sex: F Admission Date: 11/29/2016 : 1985 Attending Physician: Liliam Bennett M.D. Admitting Physician: Liliam Bennett M.D. Primary Care Physician: Primary Care Physician Jovanna MARSHALL PROGRESS NOTES DATE November 30, 2016 DISCUSSION Ms. Ruiz is a 31-year-old white female, who was seen today and chart was reviewed and the case was discussed with the staff. She has been anxious, withdrawn, depressed, and seclusive to herself and reports having suicidal thoughts and also feeling the medications are working and really wanting medications to be titrated. Meanwhile, she has not shown any agitation or any aggression. MENTAL STATUS EXAMINATION Young white female, who was casually dressed with fair personal hygiene and appears to be in no acute distress or discomfort. She was awake and alert with impaired attention and concentration. Her mood was anxious with a congruent affect. The patient denies any suicidal or homicidal ideations. Her insight and judgment remain slightly impaired. TREATMENT PLAN 1. We will continue her on her current medications and treatment protocol, and will monitor her response to the medications, and make further adjustments as needed. 2. We will continue to followup. Dictated by... Prisca Law/severino TD: 12/01/2016 07:51 JOB #: [id number] Unit #: [id number] #: [id number] Patient: OCTAVIA RUIZ JOANNA PROGRESS NOTES Page 1 of 1 X Liliam Bennett MD PROGRESS NOTE
--- NOTE | ~2016-11-29 | PN ---
Unit #: [id number] #: [id number] Patient: OCTAVIA RUIZ [id number] [facility] [address] [place] [address] [id number] MR#: [id number] NAME: OCTAVIA RUIZ. ROOM: P113 Age: 31 Sex: F Admission Date: 11/29/2016 : 1985 Attending Physician: Liliam Bennett M.D. Admitting Physician: Liliam Bennett M.D. Primary Care Physician: Primary Care Physician Jovanna MARSHALL PROGRESS NOTES DATE December 01, 2016 DISCUSSION Ms. Ruiz is a 31-year-old white female, who was seen today and chart was reviewed and the case was discussed with the staff. She has been anxious, withdrawn, and rather seclusive to herself. Meanwhile, she has been taking the medications and tolerating them fairly well. MENTAL STATUS EXAMINATION Young white female, who was casually dressed with fair personal hygiene and appears to be in no acute distress or discomfort. She was awake and alert with impaired attention and concentration. Her mood was anxious and depressed with a congruent affect. She reports having suicidal ideations, but denies any homicidal ideations. Her insight and judgment remain slightly impaired. TREATMENT PLAN 1. We will continue her on her current medications and treatment protocol, and will monitor her response to the medications, and make further adjustments as needed. 2. We will continue to followup. Dictated by... Prisca Law/severino TD: 12/02/2016 09:17 JOB #: [id number] Unit #: [id number] #: [id number] Patient: OCTAVIA RUIZ JOANNA PROGRESS NOTES Page 1 of 1 X Liliam Bennett MD PROGRESS NOTE
--- NOTE | ~2016-11-29 | HP ---
Unit #: [id number] #: [id number] Patient: OCTAVIA ESPINAL [id number] [place] [address] [id number] I MR#: [id number] NAME: OCTAVIA ESPINAL. ROOM: P113 Age: 31 Sex: F Admission Date: 11/29/2016 : 1985 Attending Physician: Liliam Bennett M.D. Admitting Physician: Liliam Bennett M.D. Primary Care Physician: Primary Care Physician No HISTORY AND PHYSICAL HISTORY OF PRESENT ILLNESS The patient is a 31-year-old female who states she is here for mood issues, bipolar disorder. PAST MEDICAL HISTORY Significant for anxiety. SURGICAL HISTORY Significant for clipping of a cerebral aneurysm. SOCIAL HISTORY Positive for smoking. ALLERGIES The patient states none. FAMILY HISTORY Noncontributory. REVIEW OF SYSTEMS CONSTITUTIONAL: No fever or chills. HEENT: Denies any sore throat, ear pain or runny nose. CARDIOVASCULAR: Denies chest pain, irregular heart rhythm or palpitations. CHEST: Denies shortness of breath or cough. No hemoptysis. GASTROINTESTINAL: Denies nausea, vomiting, diarrhea or chronic constipation. ENDOCRINE: Denies history of increased thirst or urination. No recent significant weight loss or gain. GENITOURINARY: Denies dysuria, frequency, or hematuria. SKIN: Denies any rashes. HEMATOLOGIC: Denies history of increased bleeding or bruising. MUSCULOSKELETAL: Denies any hot, swollen joints. No generalized muscle pain. NEUROLOGIC: Denies problems with vision or speech. No frequent, severe headaches. No numbness, tingling or weakness in any extremities. Denies loss of bladder or bowel control. CURRENT MEDICATIONS 1. Depakote DR 500 mg p.o. twice daily. 2. Lexapro 10 mg p.o. daily. 3. Seroquel 300 mg p.o. q.h.s. Unit #: [id number] #: [id number] Patient: OCTAVIA ESPINAL PHYSICAL EXAMINATION GENERAL: Alert, oriented in no acute distress. VITAL SIGNS: Temperature 98.3, heart rate 88, respirations 20, blood pressure 149/90. HEIGHT: 5 feet 1 inches WEIGHT: 125 pounds SKIN: Warm and dry without rash. Tattoo to the right wrist, right subscapular area, left neck. Bilateral ear piercings. HEENT: Normocephalic. TMs not viewed. Oral and nasal passages clear. Conjunctivae clear. PERRLA. EOMs intact. NECK: Supple without lymphadenopathy or thyromegaly. HEART: Regular rate and rhythm without murmur. LUNGS: Clear. ABDOMEN: Soft, nontender, without masses or hepatosplenomegaly. : Not done. EXTREMITIES: No evidence of cyanosis, clubbing or edema. Moves all without focal deficit. NEUROLOGICAL: Grossly within normal limits. Cranial Nerves: II: Visual perez are intact. III, IV AND : Extraocular movements are intact. Pupils are equal, round and reactive to light. V: Facial sensation is grossly normal. VII: Facial movements and expression are normal. VIII: Auditory acuity grossly intact. IX, X: Uvula is midline. Phonation is normal. XI: Patient shrugs shoulders and turns head normally. XII: Tongue protrudes in the midline. Sensory and Motor Function: Sensory and motor sensation is grossly normal. Motor: moves all extremities well. Coordination: Gait is normal. Deep Tendon Reflexes: Intact. IMPRESSION Psychiatric admission RECOMMENDATIONS Psychiatric, per psychiatrist. MEDICAL: I see no contraindications to participating in facility's activities. MEDICAL PROGNOSIS Good. Dictated by... Gus Arias/arianne TD: 12/01/2016 02:16 JOB #: [id number] Unit #: [id number] #: [id number] Patient: TEDDYOCTAVIA Tyler HISTORY AND PHYSICAL Page 1 of 1 X Marlyn Lopez APR X HISTORY AND PHYSICAL
== END 2016-12-03 10:30 | DRG 885 ==
LOC: P1S 12:47 → POF 12:47 → P1S 15:27
DX: F25.9 Schizoaffective disorder, unspecified (principal); F11.20 Opioid dependence, uncomplicated; I10 Essential (primary) hypertension; F15.20 Other stimulant dependence, uncomplicated; K21.9 Gastro-esophageal reflux disease without esophagitis; A59.9 Trichomoniasis, unspecified

== ENCOUNTER 2017-01-03 17:00 | Inpatient (IN) | payer OTHER ==
[~2017-01-03] VITALS: Ht 157.5 cm; Wt 53.5 kg
--- NOTE | ~2017-01-03 | HP ---
Unit #: [id number] #: [id number] Patient: EDUARDA ESPINAL [id number] [place] [address] [id number] I MR#: [id number] NAME: EDUARDA ESPINAL. ROOM: P122 Age: 31 Sex: F Admission Date: 01/03/2017 : 1985 Attending Physician: Liliam Bennett M.D. Admitting Physician: Liliam Bennett M.D. Primary Care Physician: Primary Care Physician No HISTORY AND PHYSICAL HISTORY OF PRESENT ILLNESS Eduarda is a 31-year-old female admitted on 01/03/[address] [place] [address] for suicidal ideation with a plan to overdose on medication. PAST MEDICAL HISTORY Cerebral aneurysm and she reports she is currently evaluated for possible MS. PAST SURGICAL HISTORY Cerebral aneurysm clipping in 2015. SOCIAL HISTORY Smokes 1/2 pack of cigarettes daily. Denies alcohol or illegal drug use. She is currently single and homeless. FAMILY HISTORY Noncontributory. REVIEW OF SYSTEMS CONSTITUTIONAL: No fever or chills. HEENT: Denies any sore throat, ear pain or runny nose. CARDIOVASCULAR: Denies chest pain, irregular heart rhythm or palpitations. CHEST: Denies shortness of breath or cough. No hemoptysis. GASTROINTESTINAL: Denies nausea, vomiting, diarrhea or chronic constipation. ENDOCRINE: Denies history of increased thirst or urination. No recent significant weight loss or gain. GENITOURINARY: Denies dysuria, frequency, or hematuria. SKIN: Denies any rashes. HEMATOLOGIC: Denies history of increased bleeding or bruising. MUSCULOSKELETAL: Denies any hot, swollen joints. No generalized muscle pain. NEUROLOGIC: Denies problems with vision or speech. No frequent, severe headaches. No numbness, tingling or weakness in any extremities. Denies loss of bladder or bowel control. CURRENT MEDICATIONS Seroquel, Depakote, gabapentin. ALLERGIES No known drug allergies. Unit #: [id number] #: [id number] Patient: EDUARDA ESPINAL PHYSICAL EXAMINATION GENERAL: Alert, oriented, in no acute distress. VITAL SIGNS: Blood pressure 148/104, heart rate 92, respirations 17, temperature 98.1. HEIGHT: 5 foot 2 inches. WEIGHT: 118 pounds. SKIN: Warm and dry without rash or lesion. HEENT: Normocephalic. TMs not viewed. Oral and nasal passages clear. Conjunctivae clear. PERRLA. EOMs intact. NECK: Supple without lymphadenopathy or thyromegaly. HEART: Regular rate and rhythm without murmur. LUNGS: Clear. ABDOMEN: Soft, nontender, without masses or hepatosplenomegaly. : Not done. EXTREMITIES: No evidence of cyanosis, clubbing or edema. Moves all without focal deficit. NEUROLOGICAL: Grossly within normal limits. Cranial Nerves: II: Visual perez are intact. III, IV AND : Extraocular movements are intact. Pupils are equal, round and reactive to light. V: Facial sensation is grossly normal. VII: Facial movements and expression are normal. VIII: Auditory acuity grossly intact. IX, X: Uvula is midline. Phonation is normal. XI: Patient shrugs shoulders and turns head normally. XII: Tongue protrudes in the midline. Sensory and Motor Function: Sensory and motor sensation is grossly normal. Motor: moves all extremities well. Coordination: Gait is normal. Deep Tendon Reflexes: Intact. IMPRESSION 1. Psychiatric admission. 2. Cerebral aneurysm. 3. Possible MS. RECOMMENDATIONS Psychiatric, per psychiatrist. MEDICAL: I see no contraindications to participating in facility's activities. MEDICAL PROGNOSIS Good. MEDICAL CONDITION Stable. Dictated by... Gus Brooks/arianne TD: 01/05/2017 02:00 JOB #: [id number] Unit #: [id number] #: [id number] Patient: EDUARDA ESPINAL HISTORY AND PHYSICAL Page 1 of 1 X JUDE CROCKETT APRN HISTORY AND PHYSICAL
--- NOTE | ~2017-01-03 | PN ---
Unit #: [id number] #: [id number] Patient: OCTAVIA ESPINAL [id number] [facility] [address] [place] [address] [id number] I MR#: [id number] NAME: OCTAVIA ESPINAL. ROOM: P205 Age: 31 Sex: F Admission Date: 01/03/2017 : 1985 Attending Physician: Liliam Bennett M.D. Admitting Physician: Liliam Bennett M.D. Primary Care Physician: Primary Care Physician Jovanna MARSHALL PROGRESS NOTES DATE 01/07/2017 DISCUSSION The patient is resting comfortably today. She awakens without difficulty and reports no new complaints. She states that she will likely go to a assisted. I have told her to expect a.m. discharge. Dictated by... Surjit Najera M.D. IRISH/leobardo TD: 01/07/2017 14:15 JOB #: [id number] [facility] PROGRESS NOTES Page 1 of 1 X Surjit Najera MD PROGRESS NOTE
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
--- NOTE | ~2017-01-03 | CO ---
Unit #: [id number] #: [id number] Patient: EDUARDA ESPINAL [id number] [place] [address] [id number] I MR#: [id number] NAME: EDUARDA ESPINAL. ROOM: P122 Age: 31 Sex: F Admission Date: 01/03/2017 : 1985 Attending Physician: Liliam Bennett M.D. Primary Care Physician: Primary Care Physician No Consultation Date: 01/04/2017 CONSULTATION REPORT Medical consult was requested by Dr. Bennett and completed on 01/04/2017. HISTORY OF PRESENT ILLNESS Eduarda is a poor historian and is not very helpful with the exam. She does report some blisters on her feet that she first noticed a few days ago and are causing her quite a bit of pain. She reports she has been walking quite a bit. Staff reports that she has been complaining quite a bit of pain and asking for food and other needed items brought to her. PHYSICAL EXAMINATION CARDIAC: Regular rate and rhythm. No murmurs, gallops, or rubs. RESPIRATORY: Clear to auscultation bilaterally. SKIN: Old blisters on the balls of both feet that appear to be healing well. No redness. No edema. No drainage. ASSESSMENT AND PLAN Blisters. At this time, her blisters really are nearly healed and I do not believe the blister is the cause of her perceived pain at this time, because they are healed so well. They are really not much that we can treat. Please notify if symptoms are unresolved. Dictated by... Gus Brooks/micah TD: 01/04/2017 16:45 JOB #: [id number] CONSULTATION REPORT Page 1 of 1 X JUDE CROCKETT APRN X CONSULTATION REPORT
--- NOTE | ~2017-01-03 | PN ---
Unit #: [id number] #: [id number] Patient: OCTAVIA RUIZ [id number] [facility] [address] [place] [address] [id number] I MR#: [id number] NAME: OCTAVIA RIUZ. ROOM: P205 Age: 31 Sex: F Admission Date: 01/03/2017 : 1985 Attending Physician: Liliam Bennett M.D. Admitting Physician: Liliam Bennett M.D. Primary Care Physician: Primary Care Physician Jovanna MARSHALL PROGRESS NOTES DATE OF SERVICE 01/04/2017 DISCUSSION Ms. Ruiz is a 31-year-old white female who was seen today and chart was reviewed and case was discussed with the staff. She has been anxious, withdrawn, unkempt, disheveled, disorganized and rather seclusive to herself. Meanwhile, she has been taking medications and tolerating them fairly well with no reported side effects. MENTAL STATUS EXAMINATION Young white female who was casually dressed with marginal personal hygiene appears to be in slight distress or discomfort. She was awake and alert with impaired attention and concentration. Her mood was anxious with congruent affect. Her speech was slow and restricted in content. Her thought processes were disorganized with some looseness of associations and paranoid ideation and suicidal ideations. Her insight and judgement remains significantly impaired. TREATMENT PLAN 1. We will continue her on her current medications and treatment protocol. We will monitor her response to the medication and make further adjustments as needed. 2. We will continue to follow up. Dictated by... Prisca Law/arianne TD: 01/05/2017 23:18 JOB #: [id number] Unit #: [id number] #: [id number] Patient: OCTAVIA RUIZ JOANNA PROGRESS NOTES Page 1 of 1 X Liliam Bennett MD PROGRESS NOTE
--- NOTE | ~2017-01-03 | PN ---
Unit #: [id number] #: [id number] Patient: OCTAVIA ESPINAL [id number] [facility] [address] [place] [address] [id number] I MR#: [id number] NAME: OCTAVIA ESPINAL. ROOM: P205 Age: 31 Sex: F Admission Date: 01/03/2017 : 1985 Attending Physician: Liliam Bennett M.D. Admitting Physician: Liliam Bennett M.D. Primary Care Physician: Primary Care Physician No GATOCE PROGRESS NOTES DATE OF SERVICE 01/05/2017 DISCUSSION Ms. Lerner is a 31-year-old female seen on 01/05/2017. The patient interviewed, chart reviewed. Obtained information from nursing staff. The patient continues to report feeling sad, depressed. The patient still having suicidal ideation. The patient seclusive, isolative. Complete Review of Systems: Unremarkable. MENTAL STATUS EXAMINATION General Appearance: The patient dressed casually. Attention span, concentration: Fair. Oriented in time, place, and person. Mood and affect: Sad, dysphoric. Speech: Monotone. Thought process: [place]. The patient denied any thoughts of harming others but having suicidal ideation. Unable to contract for safety. Denied any plan. Recent and remote memory: Poor. Insight and judgment: Poor. DIAGNOSIS Mood disorder not otherwise specified. ASSESSMENT/PLAN Advised to continue with current medication and therapeutic protocol. If needed, consider further adjustment of medication. Dictated by... Prisca Solis/leobardo TD: 01/07/2017 09:11 JOB #: [id number] Unit #: [id number] #: [id number] Patient: OCTAVIA ESPINAL PEABRUNA PROGRESS NOTES Page 1 of 1 X Aki Bedolla MD PROGRESS NOTE
--- NOTE | ~2017-01-03 | PN ---
Unit #: [id number] #: [id number] Patient: OCTAVIA ESPINAL [id number] [facility] [address] [place] [address] [id number] I MR#: [id number] NAME: OCTAVIA ESPINAL. ROOM: P205 Age: 31 Sex: F Admission Date: 01/03/2017 : 1985 Attending Physician: Liliam Bennett M.D. Admitting Physician: Liliam Bennett M.D. Primary Care Physician: Primary Care Physician Jovanna MARSHALL PROGRESS NOTES DATE 01/06/2017 DISCUSSION The patient has been moved to the [address] [place] [address] Unit and is now seen in coverage by this physician for Dr. Bennett. She continues to complain of anxiety and wishes to start "alprazolam." In lieu of this medication I will start the patient on low-dose scheduled Topamax after discussion of the risks and benefits of this medication and assurances that the patient has no history of renal stones. Dictated by... Prisca Easton TD: 01/06/2017 12:57 JOB #: [id number] JOANNA PROGRESS NOTES Page 1 of 1 X Surjit Najera MD PROGRESS NOTE
--- NOTE | ~2017-01-03 | PA ---
Unit #: [id number] #: [id number] Patient: [facility]UI[facility] [id number] [facility] [address] [place] [address] [id number] I MR#: [id number] NAME: OCTAVIA RUIZ. ROOM: P122 Age: 31 Sex: F Admission Date: 01/03/2017 : 1985 Date of Assessment: 01/03/2017 Attending Physician: Liliam Bennett M.D. Admitting Physician: Liliam eBnnett M.D. Primary Care Physician: Primary Care Physician No PSYCHIATRIC ASSESSMENT DATE OF SERVICE 01/03/2017. IDENTIFYING DATA Ms. Ruiz is a 31-year-old, single, white female who is a resident of [place], [place], and is very well known to us from previous multiple encounters and was self-referred to the hospital on a voluntary basis. CHIEF COMPLAINT "Just can't do it anymore." HISTORY OF PRESENT ILLNESS Ms. Ruiz is a 31-year-old white female with history of mood disorder and substance abuse, who was self-referred to the hospital reporting that her personal life is a nightmare and her mother has custody of her daughter because her mother is a "lying bitch." She reports further that her son is in custody of his father because he is a "lying piece of shit." The patient stated that she does not want to live anymore and that she wants to kill herself and has a plan to overdose on medications and reports, if her son's father, Trent Sorensen, does not return her son he will be killed and she is not threatening to kill him, but have him killed, but reports it will happen and the patient was seen to be very agitated, irritable, and acutely psychotic with bizarre behavior and suicidal ideations and vague homicidal ideations and as such, recommendation for inpatient level of care for safety and stabilization was made. The patient was transferred to us. SUBSTANCE ABUSE HISTORY The patient reports history of alcohol, cannabis, and cocaine abuse, and has history of denying and masking her substance abuse issues. PAST PSYCHIATRIC HISTORY The patient has had [facility] and has been diagnosed and treated for bipolar disorder. Review of the medical records indicate that she is supposed to be on Zyprexa and Lexapro, but has been noncompliant with medication and as such, has been decompensating. PAST MEDICAL HISTORY No acute or chronic medical illnesses. ALLERGIES No known medication allergies. Unit #: [id number] #: [id number] Patient: OCTAVIA RUIZ PERSONAL AND SOCIAL HISTORY A 31-year-old white female who reports that she is single, unemployed, and essentially homeless and has poor social support system. MENTAL STATUS EXAMINATION Young white female who was casually dressed with fair personal hygiene, appears to be in no acute distress or discomfort. She was awake and alert on interaction with intact orientation to time, place, and person. Her mood was anxious and depressed with a congruent affect. Her speech was slow and restricted in content. Her thought processes were disorganized with some looseness of associations and suicidal ideations. Her insight and judgment remain significantly impaired. DIAGNOSTIC IMPRESSION Psychiatric: Bipolar disorder, most recent episode depressed, recurrent, moderate, without psychotic features. Medical: None. Stressors: Moderate psychosocial stressors. TREATMENT PLAN 1. The patient has presented with history of mood disorder and substance abuse and dependence and has been decompensating and will need inpatient hospitalization for safety and stabilization. We will start her back on her home medications. We will adjust the medications and monitor response. 2. Supportive therapy was provided to the patient. 3. Safe, structured, and nourishing environment will be provided. ESTIMATED LENGTH OF STAY 5 to 7 days. ABILITY TO HELP SELF Limited. WILLINGNESS TO HELP SELF The patient appears to be willing to help self. STRENGTHS 1. Communicative. 2. Cooperative. PROBLEMS 1. Chronic dysphoric symptoms. 2. Poor social support system. DISCHARGE CRITERIA This will be contingent upon the patient's ability to show resolution of her depression and anxiety and her ability to stay safe to herself, particularly after discharge from the hospital. Dictated by... Prisca Law/micah TD: 01/04/2017 12:47 JOB #: [id number] Unit #: [id number] #: [id number] Patient: OCTAVIA RUIZ PSYCHIATRIC ASSESSMENT Page 1 of 1 X Liliam Bennett MD PSYCHIATRIC ASSESSMENT
[2017-01-05 10:44] LABS: BASOPHIL# 0.1 X10e3 (0-0.3); EOSINOPHIL# 0.1 X10e3 (0-0.7); EOSINOPHIL% 1.1 % (0.0-7.0); HEMATOCRIT 37.5 % (35.0-45.0); HEMOGLOBIN 12.9 gm/dL (12.0-16.0); LYMPHOCYTE# 2.4 X10e3 (1.0-3.5); LYMPHOCYTE% 35.6 % (17.0-45.0); MEAN CELL VOLUME 94.9 FL (83-96); MEAN CORPUSCULAR HEMOGLOBIN 32.6 PG (28-34); MEAN CORPUSCULAR HGB CONC 34.4 g/dL (30-36); MEAN PLATELET VOLUME 8.2 FL (6.5-11.5); MONOCYTE# 0.5 X10e3 (0-1.0); NEUTROPHIL# 3.6 X10e3 (1.5-7.1); NEUTROPHIL% 54.3 % (40-75); PLATELET COUNT 268 X10e3 (140-420); RED BLOOD COUNT 3.95 X10e (3.90-5.30); RED CELL DISTRIBUTION WIDTH 12.9 % (11.0-15.5); WHITE BLOOD COUNT 6.7 X10e3 (4.0-10.5)
[2017-01-05 11:03] LABS: DIFF IND NO
[2017-01-05 11:40] LABS: ALBUMIN SERUM 3.5 g/dL (3.5-5.0); BILIRUBIN,TOTAL 0.3 mg/dL (0.2-2.0); BUN/CREATININE RATIO 18.57; CALCIUM SERUM 8.9 mg/dL (8.4-10.2); CREATININE SERUM 0.7 mg/dL (0.6-1.4); GLOM FILT RATE Estimated 114.6 mL/min (>60)
[2017-01-07 09:39] LABS: URINE APPEARANCE CLEAR; URINE BILIRUBIN NEG (NEG); URINE BLOOD 2+ (NEG); URINE COLOR YELLOW; URINE GLUCOSE NEG (NEG); URINE KETONE NEG (NEG); URINE LEUKOCYTE ESTERASE NEG (NEG); URINE NITRATE NEG (NEG); URINE PROTEIN NEG (NEG); URINE SPECIFIC GRAVITY 1.013 (1.003-1.035); URINE UROBILINOGEN 0.2 MG/DL (NEG)
[2017-01-07 09:42] LABS: URINE BACTERIA AUWI 1+ (NEGATIVE); URINE SQUAMOUS EPITHELIAL CELL NONE SEEN /[HPF]; UWBCS1 AUWI 0-2 (0-5)
[2017-01-07 10:45] LABS: AMPHETAMINE NEG (NEG); BARBITURATES NEG (NEG); BENZODIAZEPINES NEG (NEG); COCAINE NEG (NEG); MARIJUANA NEG (NEG); OPIATES NEG (NEG); TRICYCLIC ANTIDEPRESSANTS NEG (NEG); U METHADONE NEG (NEG)
== END 2017-01-08 15:45 | disposition home or self-care (01) | DRG 885 ==
LOC: P1S 18:13 → P2S 18:13
PROVIDERS: Psychiatry & Neurology Psychiatry
DX: F31.32 Bipolar disorder, current episode depressed, moderate (principal); F17.210 Nicotine dependence, cigarettes, uncomplicated; T14.8 Other injury of unspecified body region
CPT/HCPCS: 80053; 80307; 81003; 84703; 85025